=== PATIENT | female | born 1955 | race Caucasian/White ===

== ENCOUNTER → 2023-05-17 | Outpatient (CLI) | payer MEDICARE ==
[2023-05-17 14:48] LABS: African American GFR (CKD) >90 (>60 ml/min/1.73 sqM); Blood Urea Nitrogen 9 mg/dL (7-17); Non-African American GFR(CKD) >90 (>60 ml/min/1.73 sqM)
--- NOTE | 2023-05-17 16:14 | CT ---
EXAMINATION TYPE: CT angio abdomen pelvis DATE OF EXAM: 05/17/2023 COMPARISON: None HISTORY: AAA without rupture CT DLP: 453.2 mGycm Automated exposure control for dose reduction was used. Contrast: None Technique: Axial images 5 mm thick sections. Reconstructed images in the coronal plane. Three-D recon structed images performed by the technologist are reviewed on the computer. FINDINGS: CT sections were obtained through the lung bases which are clear. CT abdomen and pelvis: The aorta at the diaphragm measures 3.0 cm. Celiac axis and superior mesenteri c artery are patent. Left and right renal arteries are patent. Just below the renal artery takeoff there is a large aneurysm. Aneurysm measures 5.6 AP by 5.8 transv erse. However, the flow lumen is smaller. This extends to the bifurcation where it terminates. Distal abdominal aortic aneurysm measures 5.0 x 5.1 cm. Vascular calcifications within the iliac vessels. N o aneurysmal dilatation is evident. Internal/external iliac vessels are patent common iliac vessels a re patent. Liver and spleen appear unremarkable. Left adrenal gland is thickened measuring 1.7 cm. Right adrenal gland is normal. Kidneys appear normal without masses cyst or hydronephrosis. No renal stones are ev ident. Inferior vena cava is unremarkable. Gallbladder surgically absent. Pancreas appears normal. Lo ops of bowel without contrast. Normal within the abdomen and pelvis CT PELVIS: Uterus is unremarkable. There is a calcific mass within the left adnexa. No free fluid is within the pelvis. Urinary bladder appears normal. Osseous structures appear unremarkable without geo picious lytic or sclerotic lesions facet degenerative changes within the lumbar spine. IMPRESSION: 1. THERE IS A 5.6 X 5.8 CM ABDOMINAL AORTIC ANEURYSM EXTENDING FROM THE RENAL ARTERIES TO THE BIFURCA TION. 2. THERE IS A CALCIFIED MASS IN THE LEFT ADNEXAL REGION MEASURING 2.0 CM.
== END | disposition home or self-care (01) ==
LOC: RADCTMAIN 13:40
PROVIDERS: ATTEND Surgery
DX: I71.40 Abdominal aortic aneurysm, without rupture, unspecified (principal)
CPT/HCPCS: 82565; 84520; 36415; 74174; Q9967

== ENCOUNTER 2023-08-29 05:32 | Inpatient (IN) | payer MEDICARE ==
[2023-08-29] MEDS: IV FLUID CONTINUATION 1,000 ML IV ONE (05:49)
[2023-08-29] MEDS ORDERED: LIDOCAINE 1% (10MG/ML) FOR IV START INTRADERMA PRN (05:50)
[2023-08-29] MEDS: LACTATED RINGERS 1,000 ML IV SCH ×2 (06:19→15:07)
[2023-08-29] MEDS: ONDANSETRON 4 MG/2 ML VIAL IVP ONE (06:22)
[2023-08-29] MEDS: DEXAMETHASONE SOD PHOSPHATE 4 MG/ML 1 ML VIAL IV ONE (06:23)
[2023-08-29 06:30] LABS: Basophils # (A) 0.1 k/uL (0-0.2); Basophils % (A) 1 %; Eosinophils # (A) 0.2 k/uL (0-0.7); Eosinophils % (A) 2 %; HCT 43.9 % (34.0-46.0); HGB 14.4 gm/dL (11.4-16.0); Lymphocytes # (A) 2.8 k/uL (1.0-4.8); Lymphocytes % (A) 27 %; MCH 30.4 pg (25.0-35.0); MCHC 32.9 g/dL (31.0-37.0); MCV 92.4 fL (80.0-100.0); Mean Platelet Volume 8.5; Monocytes # (A) 0.5 k/uL (0-1.0); Monocytes % (A) 5 %; Neutrophils # (A) 6.6 k/uL (1.3-7.7); Neutrophils % (A) 65 %; Platelet Count 296 k/uL (150-450); RBC 4.75 m/uL (3.80-5.40); WBC 10.3 k/uL (3.8-10.6)
[2023-08-29 06:41] LABS: ALT 13 U/L (4-34); AST 20 U/L (14-36); African American GFR (CKD) >90 (>60 ml/min/1.73 sqM); Albumin 4.5 g/dL (3.5-5.0); Alkaline Phosphatase 97 U/L (38-126); Anion Gap 8 mmol/L; Blood Urea Nitrogen 9 mg/dL (7-17); Calcium 10.1 mg/dL (8.4-10.2); Carbon Dioxide 23 mmol/L (22-30); Chloride 108 mmol/L (98-107); Glucose 118 mg/dL (74-99); Non-African American GFR(CKD) >90 (>60 ml/min/1.73 sqM); Sodium 139 mmol/L (137-145); Total Bilirubin 0.5 mg/dL (0.2-1.3); Total Protein 7.7 g/dL (6.3-8.2)
[2023-08-29] MEDS: MIDAZOLAM 2 MG/2 ML VIAL IVP ONE (06:46)
[2023-08-29] MEDS: fentaNYL (PF) 50 MCG/ML 2 ML AMP IVP ONE (06:46)
[2023-08-29 06:59] LABS: Prothrombin Time 10.6 sec (10.0-12.5)
[2023-08-29] MEDS ORDERED: HYDROmorphone 0.5 MG/0.5 ML SYRINGE IVP PRN (07:00)
--- NOTE | 2023-08-29 07:14 | P.GSHP ---
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 She denies any abdominal, back or lower extremity pain. She denies any fevers, chills, chest pain or shortness of breath. - Review of Systems All systems: negative (what is mentioned in the PMH or HPI) Past Medical History Past Medical History: Hyperlipidemia, Hypertension, Osteoarthritis (OA) Additional Past Medical History / Comment(s): Abdominal aortic aneurysm History of Any Multi-Drug Resistant Organisms: None Reported Past Surgical History: Cholecystectomy Past Anesthesia/Blood Transfusion Reactions: No Reported Reaction Additional Past Anesthesia/Blood Transfusion Reaction / Comment(s): no hx blood transfusion Smoking Status: Current every day smoker - Past Family History Father Family Medical History: Cancer Additional Family Medical History / Comment(s): stomach CA Mother Family Medical History: Cancer Additional Family Medical History / Comment(s): lung CA Medications and Allergies Home Medications Medication Instructions Recorded Confirmed Type Atorvastatin [Lipitor] 10 mg PO DAILY 08/26/23 08/29/23 History Cholecalciferol [Vitamin D3 (25 25 mcg PO DAILY 08/26/23 08/29/23 History Mcg = 1000 Iu)] amLODIPine [Norvasc] 5 mg PO QAM 08/26/23 08/29/23 History Allergies Allergy/AdvReac Type Severity Reaction Status Date / Time No Known Allergies Allergy Verified 08/29/23 06:17 Surgical - Exam Vital Signs Temp Pulse Resp BP Pulse Ox 98 F 73 16 148/78 97 08/29/23 06:05 08/29/23 06:05 08/29/23 06:05 08/29/23 06:05 08/29/23 06:05 Patient Seen Date: 08/29/23 Patient Seen Time: 07:00 - General well developed, well nourished, no distress - Eyes PERRL, normal ocular movement - ENT normal pinna, normal nares - Neck no masses, no bruits - Respiratory normal expansion, normal respiratory effort - Cardiovascular Rhythm: regular - Abdomen Abdomen: soft, non tender - Neurologic normal coordination, normal sensation - Musculoskeletal normal gait - Psychiatric oriented to time, oriented to person, speech is normal palpable DP and PT pulses bilaterally Results - Labs 08/29/23 06:08 08/29/23 06:08 Abnormal Lab Results - Last 24 Hours (Table) 08/29/23 Range/Units 06:08 Chloride 108 H (98-107) mmol/L Glucose 118 H (74-99) mg/dL Diabetes panel 08/29/23 Range/Units 06:08 Sodium 139 (137-145) mmol/L Potassium 4.0 (3.5-5.1) mmol/L Chloride 108 H (98-107) mmol/L Carbon Dioxide 23 (22-30) mmol/L BUN 9 (7-17) mg/dL Creatinine 0.62 (0.52-1.04) mg/dL Glucose 118 H (74-99) mg/dL Calcium 10.1 (8.4-10.2) mg/dL AST 20 (14-36) U/L ALT 13 (4-34) U/L Alkaline Phosphatase 97 (38-126) U/L Total Protein 7.7 (6.3-8.2) g/dL Albumin 4.5 (3.5-5.0) g/dL Calcium panel 08/29/23 Range/Units 06:08 Calcium 10.1 (8.4-10.2) mg/dL Albumin 4.5 (3.5-5.0) g/dL Pituitary panel 08/29/23 Range/Units 06:08 Sodium 139 (137-145) mmol/L Potassium 4.0 (3.5-5.1) mmol/L Chloride 108 H (98-107) mmol/L Carbon Dioxide 23 (22-30) mmol/L BUN 9 (7-17) mg/dL Creatinine 0.62 (0.52-1.04) mg/dL Glucose 118 H (74-99) mg/dL Calcium 10.1 (8.4-10.2) mg/dL Adrenal panel 08/29/23 Range/Units 06:08 Sodium 139 (137-145) mmol/L Potassium 4.0 (3.5-5.1) mmol/L Chloride 108 H (98-107) mmol/L Carbon Dioxide 23 (22-30) mmol/L BUN 9 (7-17) mg/dL Creatinine 0.62 (0.52-1.04) mg/dL Glucose 118 H (74-99) mg/dL Calcium 10.1 (8.4-10.2) mg/dL Total Bilirubin 0.5 (0.2-1.3) mg/dL AST 20 (14-36) U/L ALT 13 (4-34) U/L Alkaline Phosphatase 97 (38-126) U/L Total Protein 7.7 (6.3-8.2) g/dL Albumin 4.5 (3.5-5.0) g/dL Assessment and Plan Assessment: Juxtarenal AAA Plan: To OR for open AAA repair.
[2023-08-29] MEDS: SODIUM CHLORIDE 0.9% 1,000 ML IV ONE ×4 (07:40→09:54)
[2023-08-29] MEDS ORDERED: CALCIUM CHLORIDE 100 MG/ML 10 ML SYRINGE ONE (07:55)
[2023-08-29] MEDS ORDERED: HEPARIN SODIUM,PORCINE 10,000 UNIT/ML 1 ML VIAL ONE (07:55)
[2023-08-29] MEDS ORDERED: NEOSTIGMINE 1 MG/ML 10 ML VIAL ONE (07:55)
[2023-08-29] MEDS ORDERED: fentaNYL (PF) 50 MCG/ML 2 ML AMP ONE (07:55)
[2023-08-29] MEDS ORDERED: ALBUMIN HUMAN 5% (25gm) 500 ML VIAL IVPB ONE (07:55)
[2023-08-29] MEDS ORDERED: PHENYLEPHRINE-0.9% NACL SYG 1,000 MCG/10 ML SYRINGE ONE (07:55)
[2023-08-29] MEDS ORDERED: MIDAZOLAM 2 MG/2 ML VIAL ONE (07:55)
[2023-08-29] MEDS ORDERED: ACETAMINOPHEN IV (For NPO) 1,000 MG/100 ML VIAL ONE (07:55)
[2023-08-29] MEDS ORDERED: PROPOFOL 10 MG/ML 20 ML VIAL IV ONE (07:55)
[2023-08-29] MEDS ORDERED: PROTAMINE SULFATE 10 MG/ML 5 ML VIAL ONE (07:55)
[2023-08-29] MEDS ORDERED: SODIUM BICARB 8.4% 50 ML SYR (1 MEQ/ML) ONE (07:55)
[2023-08-29] MEDS ORDERED: GLYCOPYRROLATE 0.2 MG/ML 2 ML VIAL ONE (07:55)
[2023-08-29] MEDS ORDERED: ROCURONIUM 10 MG/ML (5 ML VIAL) IV ONE (07:55)
[2023-08-29] MEDS: THROMBIN (BOVINE) 5,000 UNIT VIAL MISCELLANE ONE ×2 (08:10→12:03)
--- NOTE | 2023-08-29 08:13 | XR ---
EXAMINATION TYPE: XR chest 1V portable DATE OF EXAM: 08/29/2023 COMPARISON: None INDICATION: Line placement presurgical clearance TECHNIQUE: Single frontal view of the chest is obtained. FINDINGS: The heart size is normal. The pulmonary vasculature is normal. The lungs are clear. There is a right central venous catheter placement with tip in superior vena cava region. No thorax i s evident. IMPRESSION: 1. No acute pulmonary process. 2. Placement of right central venous catheter tip in the superior vena cava region. No pneumothorax.
[2023-08-29 08:20] LABS: ABG Glucose Whole Blood 110 mg/dL (75-99); ABG HCO3 24 mmol/L (21-25); ABG Ionized Calcium 4.7 mg/dL (4.5-5.3); ABG PCO2 37 mmHg (35-45); ABG PH 7.41 (7.35-7.45); ABG PO2 305 mmHg (83-108); ABG Potassium Whole Blood 3.3 mmol/L (3.4-4.5); ABG Sodium Whole Blood 141 mmol/L (135-146); Allen Test Performed? Yes
[2023-08-29 08:30] LABS: ABG TCO2 22 mmol/L (19-24)
[2023-08-29 08:31] LABS: ABG Base Excess -0.6 mmol/L; ABG Hematocrit 35 % (34.0-46.0); ABG Oxygen Saturation 99.2 % (94-97)
[2023-08-29] MEDS: HEPARIN SODIUM,PORCINE 10,000 UNIT in SODIUM CHLORIDE 0.9% 1,000 ML IRRIGATION ONE (08:42)
[2023-08-29] MEDS: ceFAZolin 4,000 MG in SODIUM CHLORIDE 0.9% 1,000 ML IRRIGATION ONE (08:43)
[2023-08-29] MEDS ORDERED: NALOXONE 0.4 MG/ML 1 ML VIAL IV PRN (09:03)
[2023-08-29] MEDS ORDERED: diphenhydrAMINE 50 MG/ML 1 ML VIAL IVP PRN (09:03)
--- NOTE | 2023-08-29 10:01 | P.ANPRN ---
Procedure Note - Anesthesia - Epidural/Spinal Epidural Continuous Time Out Performed: Yes Date of Procedure: 08/29/23 Procedure Start Time: 07:02 Procedure Stop Time: 07:10 Location of Patient: PreOp Indication: Acute Post-Operative Pain (cuppari), Requested by Surgeon Sedation Type: Sedate with meaningful contact maintained Preparation: Sterile Dressing Number of Attempts: 1 Position: Sitting Catheter Depth at Skin (cm): 10 Catheter: Indwelling Needle Guage: 18 Injectate: lido 1.5% with epi 4cc Narrative: neg test dose Blood Aspirated: No Pain Paresthesia on Injection Noted: No Events: Uneventful and Well Tolerated
--- NOTE | 2023-08-29 10:03 | P.ANPRN ---
Procedure Note - Anesthesia - Invasive Line Left Arterial Line Time Out Performed: Yes (0645) Date of Procedure: 08/29/23 Time of Procedure: 06:46 Location of Patient: PreOp Preparation: Sterile Prep, Sterile Dressing Arterial Line Location: Radial (left) Ultrasound Used: No Purpose - Visualization and Identification of Vasculature: No Needle Guage: 20g Image Stored and Saved: No Narrative: Invasive line placement per sterile protocol utilized. Lumen blood and flushed
--- NOTE | 2023-08-29 10:05 | P.ANPRN ---
Procedure Note - Anesthesia - Invasive Line Right Central Line Time Out Performed: Yes (0714) Date of Procedure: 08/29/23 Time of Procedure: 07:15 Location of Patient: PreOp Preparation: Sterile Prep, Sterile Dressing Central Line Location: Internal Jugular (right IJ MJ) Ultrasound Used: Yes Purpose - Visualization and Identification of Vasculature: Yes Needle Guage: 18g angio Image Stored and Saved: Yes Narrative: Invasive line placement per sterile protocol utilized. Anesthesia note Procedure: Right internal jugular central venous catheter insertion: Double- lumen catheter Sterile protocol followed. Right neck prepped. Ultrasound used. Lidocaine 1% used. Using ultrasound local anesthetic was instilled site over right Internal Jugular vein. Angiocath was used to gain access via ultrasound. Once free flow non-pulsatile blood flow was confirmed, 12 inch extension tubing was then placed on Angiocath. Once central venous pressure was confirmed, J-wire was then placed through Angiocath. Angiocath was then withdrawn. Local was instilled at J-wire site. Small skin justice was then made with provided sterile scalpel. Uneventful dilation. Double-lumen catheter was then inserted over the wire while maintaining control of wire at all times. Uneventful insertion. Free flow nonpulsatile blood flow through double-lumen catheter. Both lumens blood flushed and clamped. Secured with suture. Dressings applied. Drapes Removed. Attempts x1.
[2023-08-29] MEDS: LACTATED RINGERS 1,000 ML IV ONE (10:59)
[2023-08-29 12:24] LABS: ABG Glucose Whole Blood 157 mg/dL (75-99); ABG HCO3 15 mmol/L (21-25); ABG Ionized Calcium 4.2 mg/dL (4.5-5.3); ABG PCO2 37 mmHg (35-45); ABG PH 7.21 (7.35-7.45); ABG PO2 240 mmHg (83-108); ABG Potassium Whole Blood 4.1 mmol/L (3.4-4.5); ABG Sodium Whole Blood 139 mmol/L (135-146); Allen Test Performed? Yes
[2023-08-29 12:37] LABS: ABG Base Excess -1.9 mmol/L; ABG Glucose Whole Blood 155 mg/dL (75-99); ABG HCO3 23 mmol/L (21-25); ABG Hematocrit 29 % (34.0-46.0); ABG Ionized Calcium 3.8 mg/dL (4.5-5.3); ABG Oxygen Saturation 98.6 % (94-97); ABG PCO2 38 mmHg (35-45); ABG PH 7.39 (7.35-7.45); ABG PO2 226 mmHg (83-108); ABG Potassium Whole Blood 3.7 mmol/L (3.4-4.5); ABG Sodium Whole Blood 145 mmol/L (135-146); ABG TCO2 22 mmol/L (19-24); Allen Test Performed? Yes
[2023-08-29 12:41] LABS: ABG TCO2 14 mmol/L (19-24)
[2023-08-29 12:42] LABS: ABG Base Excess -12.1 mmol/L; ABG Hematocrit 31 % (34.0-46.0); ABG Lactic Acid Whole Blood 5.8 mmol/L (0.5-1.6); ABG Oxygen Saturation 98.7 % (94-97)
[2023-08-29 12:43] LABS: ABG Lactic Acid Whole Blood 5.8 mmol/L (0.5-1.6)
[2023-08-29] MEDS: ROPIVACAINE 250 MG, fentaNYL (PF) 625 MCG in SODIUM CHLORIDE 0.9% 188 ML EPIDURAL PRN (13:35)
--- NOTE | 2023-08-29 14:05 | P.OP ---
Date of Procedure: 08/29/23 Preoperative Diagnosis: Juxta-renal AAA Postoperative Diagnosis: Same Procedure(s) Performed: Open AAA repair with interposition Tube graft Anesthesia: GRANT Surgeon: Jovanni Sierra Estimated Blood Loss (ml): 700 Pathology: other (Aortic thrombus, plaque) Condition: stable Disposition: PACU Indications for Procedure: 67 year old female with history of Juxta-renal AAA presents today for open AAA secondary to poor anatomy for EVAR. Description of Procedure: Operative narrative: After written informed consent was obtained the patient all risks benefits and competitions were described the patient was brought to the operative suite and laid in a supine position. The area from the nipples to the knees were prepped and draped in usual sterile fashion after appropriate anesthetic was performed per the anesthesiologist. A timeout was performed in n ormal fashion. Antibiotics were administered prior to incision. Midline incision was then created with a 10 blade scalpel from the xiphoid to the suprapubic region and dissection was carried down with electrocautery to the fascia fascia was then incised and the abdomen was entered once the peritoneum was incised. Abdomen was then interrogated. Liver was within normal limits with some discoloration noted likely due to pressure from the aneurysm. Stomach was palpated and NG tube was in appropriate position. Small bowel was then placed in the right upper quadrant after the Omni retractor was positioned in normal fashion. The retroperitoneum was then exposed and the aorta was dissected free with electrocautery up to the renal vein. Renal vein was located and ligated in order to allow for dissection around the aorta just at the infrarenal aspect. Circumferential dissection was then carried around the aorta and a umbilical tape was placed. Continue dissection was then carried down to the bifurcation and both iliac arteries were located and dissected free and controlled with vessel loops. Patient was then administered heparin and followed with serial ACTs for appropriate heparinization. After ACT was greater than 200 the aorta was clamped at the infrarenal aspect and arteriotomy was created with 11 blade scalpel and extended with Pott Nazario scissors. The proximal and distal aspects were then T'd off in usual fashion. Lumbar vessels were then suture ligated from the inside of the sac with 2-0 Prolene suture. A large amount thrombus was encountered which was removed from the aorta. Inflow was assessed and was pulsatile after removing thrombus from the juxtarenal aspect of the aorta. The aorta was then cut to allow for end to end anastomosis. A 20mm [place] straight tube graft was chosen and the aortic aspect was spatulated and end-to-end anastomosis was created with 3-0 Prolene suture in a running fashion with pledgets. Once completed and flow was released de monstrating good pulsatile flow within the graft and no leak proximally. Attention was then placed to the distal anastomosis at the distal aorta. The graft was spatulated in usual fashion and using 3-0 Prolene suture x 2 the distal anastomosis was performed with pledgets. Final sutures were then secured after flushing of the aortic graft. Hemostasis was assured with Gelfoam and thrombin. The abdomen was copiously irrigated with antibiotic solution. The existing aneurysmal tissue was then closed with a 3-0 Vicryl suture in a running fashion. The retroperitoneum was then closed with 2-0 Vicryl suture in a running fashion. The intra-abdominal contents were once again interrogated without any evidence of injury. The fascia was then closed with 2-0 PDS suture in a running fashion 2. The skin was closed with jina. Skin was then cleansed and dressed with Prevena wound vacs. The patient tolerated the procedure well and had palpable pulse at the DP and PT bilaterally. Patient was then sent to PACU for recovery.
[2023-08-29] MEDS ORDERED: MORPHINE SULFATE 2 MG/ML SYRINGE IV PRN (14:07)
[2023-08-29] MEDS: diphenhydrAMINE 50 MG/ML 1 ML VIAL IVP STA (14:22)
[2023-08-29] MEDS: droPERidol 5 MG/2 ML VIAL IVP ONE ×2 (14:22→15:06)
[2023-08-29 14:36] LABS: Glucose,Whole Blood 256 mg/dL (70-110)
[2023-08-29 15:59] LABS: African American GFR (CKD) 73 (>60 ml/min/1.73 sqM); Anion Gap 10 mmol/L; Blood Urea Nitrogen 11 mg/dL (7-17); Calcium 9.1 mg/dL (8.4-10.2); Carbon Dioxide 20 mmol/L (22-30); Chloride 110 mmol/L (98-107); Glucose 219 mg/dL (74-99); Non-African American GFR(CKD) 63 (>60 ml/min/1.73 sqM); Sodium 140 mmol/L (137-145)
[2023-08-29 16:06] LABS: Glucose,Whole Blood 204 mg/dL (70-110)
[2023-08-29] MEDS: MORPHINE SULFATE 2 MG/ML SYRINGE IVP PRN (16:06)
[2023-08-29] MEDS: HEPARIN SODIUM,PORCINE 5,000 UNIT/ML 1 ML VIAL SQ SCH (16:07)
[2023-08-29 16:16] LABS: Basophils % (A) 0 %; Eosinophils % (A) 0 %; HCT 41.6 % (34.0-46.0); HGB 13.6 gm/dL (11.4-16.0); Lymphocytes # (A) 1.1 k/uL (1.0-4.8); Lymphocytes % (A) 5 %; MCH 30.8 pg (25.0-35.0); MCHC 32.7 g/dL (31.0-37.0); MCV 94.1 fL (80.0-100.0); Mean Platelet Volume 8.5; Monocytes # (A) 0.8 k/uL (0-1.0); Monocytes % (A) 4 %; Neutrophils # (A) 19.4 k/uL (1.3-7.7); Neutrophils % (A) 90 %; Platelet Count 241 k/uL (150-450); RBC 4.42 m/uL (3.80-5.40); WBC 21.4 k/uL (3.8-10.6)
[2023-08-29] MEDS: ATORVASTATIN 10 MG TAB PO SCH (20:13)
[2023-08-29] MEDS: amLODIPine 5 MG TAB PO SCH (20:13)
--- NOTE | 2023-08-29 21:23 | P.CONS ---
History of Present Illness - Reason for Consult Consult date: 08/29/23 Medical evaluation - Chief Complaint Medical evaluation - History of Present Illness Patient is a 67-year-old male with past medical history of hyperlipidemia, hypertension, osteoarthritis, status post open AAA repair postop day 0 is seen at the bedside for medical evaluation. Patient is in stable condition. Patient reports postsurgical left foot dull intermittent pain, 3/10, nonradiating with no alleviating or exacerbating factors. Patient stated the pain has improved from 7/10 and is feeling much better compared to how she felt 1 to 2 hours ago. Otherwise, she denies headache, dizziness, blurry vision, fever, chills, nausea, vomiting, shortness of breath, chest pain, abdominal pain, and pain anywhere else. Her urinary output at 14:59 was 675 mL via indwelling catheter. Indwelling catheter has been taken out. Patient states that she was diagnosed with AAA 3 years ago. She had been following up with Dr. Sierra and was advised by him in May 2023 for AAA repair surgery. Chest x-ray done preoperatively shows no acute pulmonary process with right central venous catheter tip in the superior vena cava region and otherwise unremarkable. Laboratory evaluation shows WBC 21.4, hemoglobin 13.6, hematocrit 41.6, platelet count 241, lactic acid 5.8 --> 3.9, sodium 140, potassium 4.0, chloride 110, bicarb 20, BUN 11, creatinine 0.95, EGFR 63, serum glucose 219. Vital sign: Tmax 97.6 F, heart rate 94, respiratory rate 15, BP 134/98, O2 saturation 97% on 2 L via nasal cannula. Review of systems: Pertinent positives and negatives as discussed in HPI, a complete review of systems was performed and all other systems are negative Social history: Tobacco: 1 pack/day x 30 years Alcohol: None Recreational drugs: Marijuana 2 times per week; last time used 2 days ago. Travel: None Occupation: Retired Family History: Noncontributory Physical examination: Vital signs reviewed General: non toxic, no distress, appears at stated age, normal weight Derm: no unusual rashes/lesions, warm Head: atraumatic, normocephalic, symmetric Eyes: EOMI, no lid lag, anicteric sclera, pupils equal round reactive to light ENT: Nose and ears atraumatic Neck: No cervical lymphadenopathy, trachea midline, supple Mouth: no lip lesion, mucus membranes moist Cardiovascular: S1S2 reg, no murmur, positive dorsalis pedis pulse bilateral, no edema Lungs: CTA bilateral, no rhonchi, no rales, no accessory muscle use Abdominal: Midline incision with no surrounding erythema and intact with wound VAC. Otherwise soft, nontender to palpation, no guarding, BS positive Ext: muscle strength 5 out of 5 in all 4 extremities grossly, no gross muscle atrophy, no contractures, heat pad wrap on both feet Neuro: CN II-XI grossly intact, no gross focal neuro deficits Psych: Alert, oriented, appropriate affect Assessment/Plan: 67-year-old female with past medical history of hyperlipidemia, hypertension, osteoarthritis, status post open AAA repair postop day 0 is seen at the bedside for medical evaluation 1. Hyperglycemia, suspected undiagnosed type 2 diabetes Ordered HbA1c Ordered sliding scale short acting insulin Continue to monitor blood glucose level 2. Status post open AAA repair Defer management including pain control to primary surgery service *Chronic conditions: Hypertension and hyperlipidemia Resume home medication tomorrow a.m.: Amlodipine 5 mg p.o. daily and Lipitor 10 mg p.o. daily DVT prophylaxis: Per surgery GI prophylaxis: Protonix 40mg IVP once daily Past Medical History Past Medical History: Hyperlipidemia, Hypertension, Osteoarthritis (OA) Additional Past Medical History / Comment(s): Abdominal aortic aneurysm History of Any Multi-Drug Resistant Organisms: None Reported Past Surgical History: Cholecystectomy Past Anesthesia/Blood Transfusion Reactions: No Reported Reaction Additional Past Anesthesia/Blood Transfusion Reaction / Comm: no hx blood transfusion Smoking Status: Current every day smoker - Past Family History Father Family Medical History: Cancer Additional Family Medical History / Comment(s): stomach CA Mother Family Medical History: Cancer Additional Family Medical History / Comment(s): lung CA Medications and Allergies Home Medications Medication Instructions Recorded Confirmed Type Atorvastatin [Lipitor] 10 mg PO DAILY 08/26/23 08/29/23 History Cholecalciferol [Vitamin D3 (25 25 mcg PO DAILY 08/26/23 08/29/23 History Mcg = 1000 Iu)] amLODIPine [Norvasc] 5 mg PO QAM 08/26/23 08/29/23 History Allergies Allergy/AdvReac Type Severity Reaction Status Date / Time No Known Allergies Allergy Verified 08/29/23 06:17 Physical Exam Vitals: Vital Signs Temp Pulse Pulse Resp BP BP BP 08/29/23 19:00 94 15 134/68 08/29/23 18:00 89 16 140/76 08/29/23 17:00 92 16 142/70 08/29/23 16:20 92 16 128/65 08/29/23 16:10 97 16 138/81 08/29/23 16:00 97.6 F 90 16 144/85 08/29/23 15:50 97 10 L 144/85 08/29/23 15:46 08/29/23 15:40 96 22 08/29/23 15:30 91 14 152/75 08/29/23 15:20 96 14 08/29/23 15:10 96 18 08/29/23 15:00 96 16 152/84 08/29/23 14:50 101 H 16 08/29/23 14:40 97.6 F 96 24 144/48 08/29/23 14:00 76 18 147/86 158/89 08/29/23 13:42 86 16 164/57 135/63 08/29/23 13:27 87 15 155/55 138/62 08/29/23 13:12 97.7 F 96 16 138/62 08/29/23 07:35 72 16 130/62 08/29/23 06:55 69 16 125/58 08/29/23 06:05 98 F 73 16 148/78 Pulse Ox FiO2 08/29/23 19:00 97 08/29/23 18:00 96 08/29/23 17:00 98 08/29/23 16:20 98 08/29/23 16:10 98 08/29/23 16:00 96 08/29/23 15:50 99 08/29/23 15:46 97 21 08/29/23 15:40 98 08/29/23 15:30 96 08/29/23 15:20 98 08/29/23 15:10 97 08/29/23 15:00 97 08/29/23 14:50 99 08/29/23 14:40 96 08/29/23 14:00 97 08/29/23 13:42 97 08/29/23 13:27 96 08/29/23 13:12 96 08/29/23 07:35 100 08/29/23 06:55 98 08/29/23 06:05 97 Intake and Output 08/29/23 08/29/23 08/29/23 06:59 14:59 22:59 Intake Total 100 4902 650 Output Total 1375 1760 Balance 100 3527 -1110 Intake: IV 100 4902 550 Invasive Line 2 20 Lactated Ringers 1,000 ml 480 @ 80 mls/hr IV .[id number] [facility] Rx#:[id number] ceFAZolin 2 gm In Sodium 50 Chloride 0.9% 50 ml @ 100 mls/hr IVPB ONCE PRN Rx# :[id number] Oral 100 Output: Gastric Drainage 100 Urine 675 1660 Estimated Blood Loss 700 Other: Voiding Method Indwelling Catheter # Bowel Movements 0 Weight 59.3 kg ABP, PAP, CO, CI - Last 8 Hours Arterial Blood Pressure 152/71 Arterial Blood Pressure 133/67 Arterial Blood Pressure 167/72 Arterial Blood Pressure 174/80 Results CBC & Chem 7: 08/29/23 15:40 08/29/23 15:40 Labs: Abnormal Lab Results - Last 24 Hours (Table) 08/29/23 08/29/23 08/29/23 Range/Units 06:08 08:23 12:27 WBC (3.8-10.6) k/uL Neutrophils # (1.3-7.7) k/uL ABG pH 7.21 L (7.35-7.45) ABG pO2 305 H 240 H (83-108) mmHg ABG HCO3 15 L (21-25) mmol/L ABG Total CO2 14 L (19-24) mmol/L ABG O2 Saturation 99.2 H 98.7 H (94-97) % ABG Hematocrit 31 L (34.0-46.0) % ABG Potassium 3.3 L (3.4-4.5) mmol/L ABG Ionized Calcium 4.2 L (4.5-5.3) mg/dL ABG Glucose 110 H 157 H (75-99) mg/dL ABG Lactic Acid 5.8 H* (0.5-1.6) mmol/L Hemoglobin 10.1 L (11.4-16.0) gm/dL Chloride 108 H (98-107) mmol/L Carbon Dioxide (22-30) mmol/L Glucose 118 H (74-99) mg/dL POC Glucose (mg/dL) (70-110) mg/dL Arterial Blood Potassium 3.3 L (3.4-4.5) mmol/L Arterial Blood Glucose 110 H 157 H (75-99) mg/dL 08/29/23 08/29/23 08/29/23 Range/Units 12:40 14:35 15:40 WBC 21.4 H (3.8-10.6) k/uL Neutrophils # 19.4 H (1.3-7.7) k/uL ABG pH (7.35-7.45) ABG pO2 226 H (83-108) mmHg ABG HCO3 (21-25) mmol/L ABG Total CO2 (19-24) mmol/L ABG O2 Saturation 98.6 H (94-97) % ABG Hematocrit 29 L (34.0-46.0) % ABG Potassium (3.4-4.5) mmol/L ABG Ionized Calcium 3.8 L (4.5-5.3) mg/dL ABG Glucose 155 H (75-99) mg/dL ABG Lactic Acid 5.8 H* (0.5-1.6) mmol/L Hemoglobin 9.4 L (11.4-16.0) gm/dL Chloride (98-107) mmol/L Carbon Dioxide (22-30) mmol/L Glucose (74-99) mg/dL POC Glucose (mg/dL) 256 H (70-110) mg/dL Arterial Blood Potassium (3.4-4.5) mmol/L Arterial Blood Glucose 155 H (75-99) mg/dL 08/29/23 08/29/23 08/29/23 Range/Units 15:40 16:00 16:05 WBC (3.8-10.6) k/uL Neutrophils # (1.3-7.7) k/uL ABG pH (7.35-7.45) ABG pO2 (83-108) mmHg ABG HCO3 (21-25) mmol/L ABG Total CO2 (19-24) mmol/L ABG O2 Saturation (94-97) % ABG Hematocrit (34.0-46.0) % ABG Potassium (3.4-4.5) mmol/L ABG Ionized Calcium (4.5-5.3) mg/dL ABG Glucose (75-99) mg/dL ABG Lactic Acid 3.9 H* (0.5-1.6) mmol/L Hemoglobin (11.4-16.0) gm/dL Chloride 110 H (98-107) mmol/L Carbon Dioxide 20 L (22-30) mmol/L Glucose 219 H (74-99) mg/dL POC Glucose (mg/dL) 204 H (70-110) mg/dL Arterial Blood Potassium (3.4-4.5) mmol/L Arterial Blood Glucose (75-99) mg/dL
[2023-08-29 22:30] LABS: Glucose,Whole Blood 135 mg/dL (70-110)
[2023-08-29] MEDS: INSULIN ASPART (NovoLOG) 100 UNIT/ML VIAL SQ SCH (22:30)
[2023-08-29] MEDS: ONDANSETRON 4 MG/2 ML VIAL IVP PRN (22:56)
[2023-08-29] MEDS: PANTOPRAZOLE 40 MG/10 ML VIAL IVP SCH (23:10)
--- NOTE | 2023-08-30 02:37 | P.CNPUL ---
History of Present Illness Consult date: 08/30/23 Requesting physician: Jovanni Sierra Reason for consult: other (ICU management) Chief complaint: Elective repair of AAA History of present illness: Patient is a 67-year-old white female with past medical history significant for hyperlipidemia, hypertension, and is a current everyday smoker. She smokes approximately 1 pack/day. Patient is also known to have an abdominal aortic aneurysm. CT angio of the abdomen and pelvis demonstrated enlargement of his aneurysm including a 5.6 x 5.8 cm abdominal aortic aneurysm extending from the renal arteries to the bifurcation. Incidentally, there is also a calcified mass in the left adnexal region measuring 2 cm. Patient is currently postoperative day #1 following an elective open AAA repair with interposition tube graft. EBL was 700 mL. No perioperative complications were reported. Patient was successfully extubated in recovery. She is currently in the intensive care unit, on 2 L/min nasal cannula, no acute distress. Blood pressure is slightly hypertensive at 131/69. Heart rhythm is normal sinus, with a rate of 90 bpm. Pain appears well-controlled with current analgesic regiment. She does have a midline abdominal incision with postoperative wound VAC in place. Incision appears approximated. No significant drainage. Abdomen is soft. CBC postoperatively includes a WBC count of 21.4, hemoglobin 13.6, hematocrit 41.6, platelets 241. Leukocytosis is likely reactive to surgery. BMP: Includes a sodium 140, potassium 4, chloride 110, serum bicarb 20, BUN 11, creatinine 0.95, glucose 219. Lactic acidemia noted and was 5.8, currently is down to 3.9. LR is infusing at 80 MLS per hour. Ropivacaine/fentanyl epidural is infusing for pain control at 6 ml/hr. Bilateral lower extremities have good strength and motor control. Bilateral feet are warm. Distal pulses are strong 2+. She does admit some left foot pain that is described as sharp, improves with dorsal/plantar flexion. Currently rated 3/10 on a 10 point numerical scale. This pain was first noted postoperatively. Patient seems to be hemodynamically stable at this time. Review of Systems REVIEW OF SYSTEMS: CONSTITUTIONAL: Denies any recent significant weight loss or weight gain. EYES: Denies change in vision. EARS, NOSE, MOUTH, THROAT: Denies headaches, denies sore throat. CARDIOVASCULAR: Denies chest pain, palpitations or syncopal episodes. RESPIRATORY: Denies shortness of breath, cough, congestion or hemoptysis. GASTROINTESTINAL: Denies change in appetite, abdominal pain, nausea and vomiting, or diarrhea GENITOURINARY: Denies hematuria, denies infections. MUSKULOSKELETAL: Denies pain, denies swelling. INTEGUMENTARY: Denies rash, denies eczema. NEUROLOGICAL: Denies recent memory loss, no recent seizure activity. PSYCHIATRIC: Denies anxiety, denies depression. HEMATOLOGIC/LYMPHATIC: Denies anemia, denies enlarged lymph node Past Medical History Past Medical History: Hyperlipidemia, Hypertension, Osteoarthritis (OA) Additional Past Medical History / Comment(s): Abdominal aortic aneurysm History of Any Multi-Drug Resistant Organisms: None Reported Past Surgical History: Cholecystectomy Past Anesthesia/Blood Transfusion Reactions: No Reported Reaction Additional Past Anesthesia/Blood Transfusion Reaction / Comment(s): no hx blood transfusion Smoking Status: Current every day smoker - Past Family History Father Family Medical History: Cancer Additional Family Medical History / Comment(s): stomach CA Mother Family Medical History: Cancer Additional Family Medical History / Comment(s): lung CA Medications and Allergies Home Medications Medication Instructions Recorded Confirmed Type Atorvastatin [Lipitor] 10 mg PO DAILY 08/26/23 08/29/23 History Cholecalciferol [Vitamin D3 (25 25 mcg PO DAILY 08/26/23 08/29/23 History Mcg = 1000 Iu)] amLODIPine [Norvasc] 5 mg PO QAM 08/26/23 08/29/23 History Allergies Allergy/AdvReac Type Severity Reaction Status Date / Time No Known Allergies Allergy Verified 08/29/23 06:17 Physical Exam Vitals: Vital Signs Temp Pulse Pulse Resp BP BP BP 08/30/23 02:00 93 18 140/91 08/30/23 01:00 90 12 131/69 08/30/23 00:00 98.2 F 92 21 137/67 08/29/23 23:04 92 16 159/77 08/29/23 23:00 99 12 142/72 08/29/23 22:00 92 18 132/62 08/29/23 21:00 94 14 133/67 08/29/23 20:00 98.4 F 91 14 140/71 08/29/23 19:00 94 15 134/68 08/29/23 18:00 89 16 140/76 08/29/23 17:00 92 16 142/70 07/15/24 16:20 92 16 128/65 08/29/23 16:10 97 16 138/81 08/29/23 16:00 97.6 F 90 16 144/85 08/29/23 15:50 97 10 L 144/85 08/29/23 15:46 08/29/23 15:40 96 22 08/29/23 15:30 91 14 152/75 08/29/23 15:20 96 14 08/29/23 15:10 96 18 08/29/23 15:00 96 16 152/84 08/29/23 14:50 101 H 16 08/29/23 14:40 97.6 F 96 24 144/48 08/29/23 14:00 76 18 147/86 158/89 08/29/23 13:42 86 16 164/57 135/63 08/29/23 13:27 87 15 155/55 138/62 08/29/23 13:12 97.7 F 96 16 138/62 08/29/23 07:35 72 16 130/62 08/29/23 06:55 69 16 125/58 08/29/23 06:05 98 F 73 16 148/78 Pulse Ox FiO2 08/30/23 02:00 96 08/30/23 01:00 96 08/30/23 00:00 96 08/29/23 23:04 96 08/29/23 23:00 94 L 08/29/23 22:00 97 08/29/23 21:00 97 08/29/23 20:00 97 08/29/23 19:00 97 08/29/23 18:00 96 08/29/23 17:00 98 08/29/23 16:20 98 08/29/23 16:10 98 08/29/23 16:00 96 08/29/23 15:50 99 08/29/23 15:46 97 21 08/29/23 15:40 98 08/29/23 15:30 96 08/29/23 15:20 98 08/29/23 15:10 97 08/29/23 15:00 97 08/29/23 14:50 99 08/29/23 14:40 96 08/29/23 14:00 97 08/29/23 13:42 97 08/29/23 13:27 96 08/29/23 13:12 96 08/29/23 07:35 100 08/29/23 06:55 98 08/29/23 06:05 97 Intake and Output 08/29/23 08/29/23 08/30/23 14:59 22:59 06:59 Intake Total 4902 898 414 Output Total 1375 2020 290 Balance 3527 -1122 124 Intake: IV 4902 748 414 0.9 pressure bag 18 24 Invasive Line 2 40 20 Lactated Ringers 1,000 ml 640 320 @ 80 mls/hr IV .[id number] [facility] Rx#:[id number] ceFAZolin 2 gm In Sodium 50 50 Chloride 0.9% 50 ml @ 100 mls/hr IVPB ONCE PRN Rx# :[id number] Oral 150 Output: Gastric Drainage 100 Urine 675 1920 290 Estimated Blood Loss 700 Other: Voiding Method Indwelling Catheter Indwelling Catheter # Bowel Movements 0 ABP, PAP, CO, CI - Last 8 Hours Arterial Blood Pressure 152/71 GENERAL EXAM: Alert, 67-year-old white female, lying supine in bed, fairly comfortable in no apparent distress. HEAD: Normocephalic and atraumatic EYES: Normal reaction of pupils, equal size. NOSE: Clear with pink turbinates. THROAT: No erythema or exudates. NECK: No masses, no JVD. Right IJ central line catheter CHEST: No chest wall deformity. LUNGS: Equal air entry with no crackles, wheeze, rhonchi or dullness. On 2 L/min nasal cannula. SpO2 96%. No conversational dyspnea or accessory muscle use.. CVS: S1 and S2 normal with no audible murmur, regular rhythm. No extra heart sounds ABDOMEN: No hepatosplenomegaly, active bowel sounds, no guarding or rigidity. SPINE: No scoliosis or deformity SKIN: No rashes CENTRAL NERVOUS SYSTEM: No focal deficits, tone is normal in all 4 extremities. EXTREMITIES: There is no peripheral edema, clubbing, or cyanosis. Peripheral pulses are intact. Results - Laboratory Findings CBC and BMP: 08/29/23 15:40 08/29/23 15:40 ABG ABG pH 7.39 (7.35-7.45) 08/29/23 12:40 ABG pCO2 38 mmHg (35-45) 08/29/23 12:40 ABG pO2 226 mmHg (83-108) H 08/29/23 12:40 ABG O2 Saturation 98.6 % (94-97) H 08/29/23 12:40 PT/INR, D-dimer PT 10.6 sec (10.0-12.5) 08/29/23 06:43 INR 1.0 (<1.2) 08/29/23 06:43 Abnormal lab findings: Abnormal Labs 08/29/23 08/29/23 08/29/23 06:08 08:23 12:27 WBC Neutrophils # ABG pH 7.21 L ABG pO2 305 H 240 H ABG HCO3 15 L ABG Total CO2 14 L ABG O2 Saturation 99.2 H 98.7 H ABG Hematocrit 31 L ABG Potassium 3.3 L ABG Ionized Calcium 4.2 L ABG Glucose 110 H 157 H ABG Lactic Acid 5.8 H* Hemoglobin 10.1 L Chloride 108 H Carbon Dioxide Glucose 118 H POC Glucose (mg/dL) Arterial Blood Potassium 3.3 L Arterial Blood Glucose 110 H 157 H 08/29/23 08/29/23 08/29/23 12:40 14:35 15:40 WBC 21.4 H Neutrophils # 19.4 H ABG pH ABG pO2 226 H ABG HCO3 ABG Total CO2 ABG O2 Saturation 98.6 H ABG Hematocrit 29 L ABG Potassium ABG Ionized Calcium 3.8 L ABG Glucose 155 H ABG Lactic Acid 5.8 H* Hemoglobin 9.4 L Chloride Carbon Dioxide Glucose POC Glucose (mg/dL) 256 H Arterial Blood Potassium Arterial Blood Glucose 155 H 08/29/23 08/29/23 08/29/23 15:40 16:00 16:05 WBC Neutrophils # ABG pH ABG pO2 ABG HCO3 ABG Total CO2 ABG O2 Saturation ABG Hematocrit ABG Potassium ABG Ionized Calcium ABG Glucose ABG Lactic Acid 3.9 H* Hemoglobin Chloride 110 H Carbon Dioxide 20 L Glucose 219 H POC Glucose (mg/dL) 204 H Arterial Blood Potassium Arterial Blood Glucose 08/29/23 22:28 WBC Neutrophils # ABG pH ABG pO2 ABG HCO3 ABG Total CO2 ABG O2 Saturation ABG Hematocrit ABG Potassium ABG Ionized Calcium ABG Glucose ABG Lactic Acid Hemoglobin Chloride Carbon Dioxide Glucose POC Glucose (mg/dL) 135 H Arterial Blood Potassium Arterial Blood Glucose - Diagnostic Findings Chest x-ray: image reviewed Assessment and Plan Assessment: Abdominal aortic aneurysm, measuring 5.6 x 5.8 cm extending from the renal artery to the bifurcation, status postoperative day #1 following an elective open repair repair with interposition tube graft. No perioperative complications reported. Patient is currently recovering in the intensive care unit. Acute leukocytosis, reactive to above Lactic acidemia, improving History of hyperlipidemia Hypertension Hyperglycemia, without known previous diagnosis of diabetes mellitus Chronic ongoing tobacco dependence, current 1 pack/day smoker and over [id number] history Plan: Patient's medications, labs, chest x-ray reviewed Currently on 2 L/min nasal cannula Encourage incentive spirometer and pulmonary toileting Blood pressure recommendations per surgery. Home dose of Norvasc has already been restarted. Assess neurovascular status of lower extremities per protocol As needed analgesics and epidural seem to be managing patient's postoperative pain well Protonix for GI prophylaxis Heparin for DVT prophylaxis Smoking cessation strongly encouraged, however, patient states that she is grieving the loss of her , who recently April, and is not ready to quit smoking at this time. We will continue to follow the patient while in the intensive care unit, patient could potentially be downgraded later today, if okayed by vascular surgery. I have personally seen and examined the patient, performed the documentation and the assessment and plan as written. Number of minutes spent on the visit:20 . Time with Patient: Greater than 30
[2023-08-30 05:02] LABS: Basophils % (A) 0 %; Eosinophils % (A) 0 %; HCT 38.4 % (34.0-46.0); HGB 12.3 gm/dL (11.4-16.0); Lymphocytes # (A) 0.9 k/uL (1.0-4.8); Lymphocytes % (A) 6 %; MCH 29.7 pg (25.0-35.0); MCV 92.9 fL (80.0-100.0); Mean Platelet Volume 10.8; Monocytes # (A) 0.7 k/uL (0-1.0); Monocytes % (A) 4 %; Neutrophils # (A) 14.3 k/uL (1.3-7.7); Neutrophils % (A) 89 %; Platelet Count 147 k/uL (150-450); RBC 4.14 m/uL (3.80-5.40); RDW 13.2 % (11.5-15.5); WBC 16.1 k/uL (3.8-10.6)
[2023-08-30 05:36] LABS: African American GFR (CKD) 37 (>60 ml/min/1.73 sqM); Anion Gap 3 mmol/L; Blood Urea Nitrogen 21 mg/dL (7-17); Calcium 8.6 mg/dL (8.4-10.2); Carbon Dioxide 27 mmol/L (22-30); Chloride 109 mmol/L (98-107); Glucose 149 mg/dL (74-99); Non-African American GFR(CKD) 32 (>60 ml/min/1.73 sqM); Potassium 3.9 mmol/L (3.5-5.1); Sodium 139 mmol/L (137-145)
[2023-08-30 06:23] LABS: Glucose,Whole Blood 150 mg/dL (70-110)
[2023-08-30] MEDS ORDERED: INSULIN ASPART (NovoLOG) 100 UNIT/ML VIAL SQ SCH (07:30)
--- NOTE | 2023-08-30 07:40 | P.PN ---
Progress Note - Text Progress Note Date: 08/30/23 Postoperative day #1 status post abdominal aortic aneurysm repair ,epidural catheter placed for postoperative analgesia, patient doing well epidural site okay, patient currently on combination of epidural infusion solution of Ropivacaine 0.0625% and fentanyl, the infusion rate at 6 ml per hour , patient had no motor deficit epidural site okay , vital signs stable ,VAS 2 /10 , Assessment and plan= post operative day #1 patient doing well ,pain well controlled , there is no anesthesia related complications
[2023-08-30] MEDS ORDERED: HYDROmorphone 0.5 MG/0.5 ML SYRINGE IVP PRN (07:55)
--- NOTE | 2023-08-30 09:49 | US ---
EXAMINATION TYPE: US kidneys/renal and bladder DATE OF EXAM: 08/30/2023 COMPARISON: NONE CLINICAL INDICATION: Female, 67 years old with history of PAMELA; EXAM MEASUREMENTS: Right Kidney: 10.5 x 4.3 x 4.9 cm Left Kidney: 10.9 x 4.9 x 4.8 cm Wagon Person notes: Exam done portable Right Kidney: No hydronephrosis or masses seen Left Kidney: No hydronephrosis or masses seen Bladder: not imaged due to bandage covering pelvic area IMPRESSION: No hydronephrosis. Unable to adequately image the bladder.
--- NOTE | 2023-08-30 11:25 | P.PN ---
Subjective Progress Note Date: 08/30/23 Principal diagnosis: Juxta-renal AAA open repair Patient is seen and examined today as a follow-up. She is in the ICU. She is postop day #1 for open abdominal aortic repair with interposition tube graft. Patient currently has epidural in place and pain is well-managed. She is able to move her lower extremities. NG tube is in place with about 250 mL output. Patient is producing good amount of urine with Nazario catheter in place. She had 1 bowel movement this morning. She denies any shortness of breath, chest pain, nausea or vomiting. Prevena wound VAC in place on abdomen. She has been afebrile. WBC 16.1 hemoglobin 12.3 platelet count 147,000 sodium 139 potassium 3.9 BUN 21 creatinine 1.65 glucose 149 Objective - Vital Signs Vital signs: Vital Signs Temp 98.1 F 08/30/23 04:00 Pulse 96 08/30/23 07:00 Resp 18 08/30/23 07:00 BP 141/70 08/30/23 07:00 Pulse Ox 95 08/30/23 07:00 FiO2 21 08/29/23 15:46 Intake & Output 08/29/23 08/30/23 08/30/23 18:59 06:59 18:59 Intake Total 5472 1292 140 Output Total 2875 1355 Balance 2597 -63 140 Weight 65.6 kg Intake: IV 5372 1142 20 0.9 pressure bag 72 Invasive Line 2 20 60 20 Lactated Ringers 1,000 ml 400 960 @ 80 mls/hr IV .[id number] [facility] Rx#:[id number] ceFAZolin 2 gm In Sodium 50 50 Chloride 0.9% 50 ml @ 100 mls/hr IVPB ONCE PRN Rx# :[id number] Oral 100 150 120 Output: Gastric Drainage 100 250 Urine 2075 1105 Estimated Blood Loss 700 Other: Voiding Method Indwelling Catheter Indwelling Catheter # Bowel Movements 0 1 ABP, PAP, CO, CI - Last Documented Arterial Blood Pressure 139/64 - Exam General appearance: The patient is alert, oriented, appears in no acute distres s. HET: Head is normocephalic and atraumatic. Pupils are equal and reactive. Neck: Supple. Heart: Regular. Lungs: Equal expansion, normal respiratory effort. Abdomen: Soft, nontender, positive bowel sounds, nondistended. Prevena wound VAC dressing in place midline abdomen. Extremities: Normal skin color and turgor. Warm to the touch. Palpable DP pulses bilaterally. Neurological: No focal deficits. Strength and sensation are grossly intact. - Labs CBC & Chem 7: 08/30/23 04:45 08/30/23 04:45 Labs: Abnormal Lab Results - Last 24 Hours (Table) 08/29/23 08/29/23 08/29/23 Range/Units 08:23 12:27 12:40 WBC (3.8-10.6) k/uL Plt Count (150-450) k/uL Neutrophils # (1.3-7.7) k/uL Lymphocytes # (1.0-4.8) k/uL ABG pH 7.21 L (7.35-7.45) ABG pO2 305 H 240 H 226 H (83-108) mmHg ABG HCO3 15 L (21-25) mmol/L ABG Total CO2 14 L (19-24) mmol/L ABG O2 Saturation 99.2 H 98.7 H 98.6 H (94-97) % ABG Hematocrit 31 L 29 L (34.0-46.0) % ABG Potassium 3.3 L (3.4-4.5) mmol/L ABG Ionized Calcium 4.2 L 3.8 L (4.5-5.3) mg/dL ABG Glucose 110 H 157 H 155 H (75-99) mg/dL ABG Lactic Acid 5.8 H* 5.8 H* (0.5-1.6) mmol/L Hemoglobin 10.1 L 9.4 L (11.4-16.0) gm/dL Chloride (98-107) mmol/L Carbon Dioxide (22-30) mmol/L BUN (7-17) mg/dL Creatinine (0.52-1.04) mg/dL Glucose (74-99) mg/dL POC Glucose (mg/dL) (70-110) mg/dL Arterial Blood Potassium 3.3 L (3.4-4.5) mmol/L Arterial Blood Glucose 110 H 157 H 155 H (75-99) mg/dL 08/29/23 08/29/23 08/29/23 Range/Units 14:35 15:40 15:40 WBC 21.4 H (3.8-10.6) k/uL Plt Count (150-450) k/uL Neutrophils # 19.4 H (1.3-7.7) k/uL Lymphocytes # (1.0-4.8) k/uL ABG pH (7.35-7.45) ABG pO2 (83-108) mmHg ABG HCO3 (21-25) mmol/L ABG Total CO2 (19-24) mmol/L ABG O2 Saturation (94-97) % ABG Hematocrit (34.0-46.0) % ABG Potassium (3.4-4.5) mmol/L ABG Ionized Calcium (4.5-5.3) mg/dL ABG Glucose (75-99) mg/dL ABG Lactic Acid (0.5-1.6) mmol/L Hemoglobin (11.4-16.0) gm/dL Chloride 110 H (98-107) mmol/L Carbon Dioxide 20 L (22-30) mmol/L BUN (7-17) mg/dL Creatinine (0.52-1.04) mg/dL Glucose 219 H (74-99) mg/dL POC Glucose (mg/dL) 256 H (70-110) mg/dL Arterial Blood Potassium (3.4-4.5) mmol/L Arterial Blood Glucose (75-99) mg/dL 08/29/23 08/29/23 08/29/23 Range/Units 16:00 16:05 22:28 WBC (3.8-10.6) k/uL Plt Count (150-450) k/uL Neutrophils # (1.3-7.7) k/uL Lymphocytes # (1.0-4.8) k/uL ABG pH (7.35-7.45) ABG pO2 (83-108) mmHg ABG HCO3 (21-25) mmol/L ABG Total CO2 (19-24) mmol/L ABG O2 Saturation (94-97) % ABG Hematocrit (34.0-46.0) % ABG Potassium (3.4-4.5) mmol/L ABG Ionized Calcium (4.5-5.3) mg/dL ABG Glucose (75-99) mg/dL ABG Lactic Acid 3.9 H* (0.5-1.6) mmol/L Hemoglobin (11.4-16.0) gm/dL Chloride (98-107) mmol/L Carbon Dioxide (22-30) mmol/L BUN (7-17) mg/dL Creatinine (0.52-1.04) mg/dL Glucose (74-99) mg/dL POC Glucose (mg/dL) 204 H 135 H (70-110) mg/dL Arterial Blood Potassium (3.4-4.5) mmol/L Arterial Blood Glucose (75-99) mg/dL 08/30/23 08/30/23 08/30/23 Range/Units 04:45 04:45 06:22 WBC 16.1 H (3.8-10.6) k/uL Plt Count 147 L (150-450) k/uL Neutrophils # 14.3 H (1.3-7.7) k/uL Lymphocytes # 0.9 L (1.0-4.8) k/uL ABG pH (7.35-7.45) ABG pO2 (83-108) mmHg ABG HCO3 (21-25) mmol/L ABG Total CO2 (19-24) mmol/L ABG O2 Saturation (94-97) % ABG Hematocrit (34.0-46.0) % ABG Potassium (3.4-4.5) mmol/L ABG Ionized Calcium (4.5-5.3) mg/dL ABG Glucose (75-99) mg/dL ABG Lactic Acid (0.5-1.6) mmol/L Hemoglobin (11.4-16.0) gm/dL Chloride 109 H (98-107) mmol/L Carbon Dioxide (22-30) mmol/L BUN 21 H (7-17) mg/dL Creatinine 1.65 H (0.52-1.04) mg/dL Glucose 149 H (74-99) mg/dL POC Glucose (mg/dL) 150 H (70-110) mg/dL Arterial Blood Potassium (3.4-4.5) mmol/L Arterial Blood Glucose (75-99) mg/dL Assessment and Plan Assessment: 1. Juxtarenal AAA status post open repair with interposition tube graft 2. History of hyperlipidemia 3. History of hypertension 4. Chronic ongoing tobacco dependence Plan: 1. Continue symptomatic and supportive care 2. Keep patient in intensive care unit 3. Continue epidural, per management from anesthesia 4. May clamp NG tube 5. Continue with n.p.o. with ice chips 6. Daily CBC, BMP 7. Continue IV fluids 8. Continue bedrest 9. Continue incentive spirometer 10. Rest of medical management per primary medical team The impression and plan of care has been dictated as directed. Patient had nausea with clamping NGT and was placed back on suction. I performed a history and examination of this patient, discussed the same with the dictator. I agree with the dictator's note ,documented as a scribe. Any additional findings or plans will be noted.
[2023-08-30 11:53] LABS: Glucose,Whole Blood 158 mg/dL (70-110)
[2023-08-30] MEDS: ONDANSETRON 4 MG/2 ML VIAL IVP PRN (14:04)
[2023-08-30] MEDS ORDERED: ACETAMINOPHEN TAB 325 MG TAB PO PRN (15:19)
[2023-08-30] MEDS ORDERED: HYDROcodone/APAP 5-325MG 1 EACH TAB PO PRN (15:20)
--- NOTE | 2023-08-30 15:25 | P.PN ---
Subjective Progress Note Date: 08/30/23 Hospital Course: 67-year-old female with history of AAA, hypertension, dyslipidemia presenting for elective AAA repair. Sound physicians consulted for medical management. Patient underwent open AAA repair with interposition tube graft. Estimated blood loss of 700 cc. Vital signs currently stable, intermittently tachycardic, not requiring any pressors. Currently being managed in medical ICU. Subjective: Patient seen and examined at bedside. No acute events overnight. Having adequate urine output. Complaining of some abdominal tenderness, having bowel movements. Nazario catheter in place Pertinent positives and negatives as discussed above, a complete review of systems was performed and all other systems are negative. Vitals Signs Reviewed. General: Nontoxic, no distress, appears at stated age Derm: Warm, dry, abdominal dressing clean, dry, intact Head: Atraumatic, normocephalic, symmetric Eyes: EOMI, no lid lag, anicteric sclera Mouth: No lip lesion, mucus membranes moist Cardiovascular: S1S2 reg, no murmur Lungs: CTA bilateral, no rhonchi, no rales, no accessory muscle use, supplemental oxygen Abdominal: Soft, nontender to palpation, no guarding, no appreciable organomegaly Ext: No gross muscle atrophy, no edema, no contractures Neuro: CN II-XI grossly intact, no focal neuro deficits Psych: Alert, oriented, appropriate affect Data Reviewed Today: Pertinent Labs: WBC 16.1, hemoglobin 12.3, sodium 139, bicarb 27, creatinine 1.65, A1c 5.9, blood sugars range between 1 35-1 58 Imaging: Renal ultrasound showed no hydronephrosis Assessment and Plan: Status post AAA open repair Leukocytosis, anticipated outcome of surgery -Pain control with epidural, managed by anesthesia, IV Dilaudid 0.5 every 2 hours as needed for severe breakthrough pain, monitor for sedation, [place] as needed for moderate pain, Tylenol as needed for mild pain -On subcu heparin for DVT prophylaxis -PT/OT ordered -Pulmonology and vascular surgery note reviewed, okay to clamp NG tube Acute kidney injury, nonoliguric Metabolic acidosis, resolved Lactic acidosis, resolved -Renal ultrasound does not show any hydronephrosis -Likely prerenal in the setting of acute blood loss -IV morphine discontinued -Continue lactated Ringer at 80 cc an hour Hypertension -Amlodipine 5 mg daily Dyslipidemia -Continue atorvastatin 10 mg daily Hyperglycemia, likely stress-induced Prediabetes, A1c 5.9 -Continue sliding scale insulin ACHS, monitor for hypoglycemia Thank you for allowing us to participate in the care of this pleasant patient. Do not hesitate to contact us with questions. Someone can be reached from the [facility] hospitalist group all hours of the day at [phone] or via perfect serve. Objective - Vital Signs Vital signs: Vital Signs Temp 97.8 F 08/30/23 12:00 Pulse 116 H 08/30/23 14:00 Resp 18 08/30/23 14:00 BP 125/73 08/30/23 14:00 Pulse Ox 93 L 08/30/23 14:00 FiO2 21 08/29/23 15:46 Intake & Output 08/29/23 08/30/23 08/30/23 18:59 06:59 18:59 Intake Total 5472 1292 1490.5 Output Total 2875 1355 790 Balance 2597 -63 700.5 Weight 65.6 kg Intake: IV 5372 1142 627 0.9 pressure bag 72 27 Invasive Line 2 20 60 40 Lactated Ringers 1,000 ml 400 960 560 @ 80 mls/hr IV .[id number] [facility] Rx#:[id number] ceFAZolin 2 gm In Sodium 50 50 Chloride 0.9% 50 ml @ 100 mls/hr IVPB ONCE PRN Rx# :[id number] Intake, IV Titration 143.5 Amount Ropivacaine 250 mg 143.5 fentaNYL (PF) 625 mcg In Sodium Chloride 0.9% 188 ml @ Per Protocol EPIDURAL .Q0M PRN Rx#: [id number] Oral 100 150 720 Output: Gastric Drainage 100 250 150 Urine 2075 1105 640 Estimated Blood Loss 700 Other: Voiding Method Indwelling Catheter Indwelling Catheter Indwelling Catheter # Bowel Movements 0 1 1 ABP, PAP, CO, CI - Last Documented Arterial Blood Pressure 146/67 - Labs CBC & Chem 7: 08/30/23 04:45 08/30/23 04:45 Labs: Abnormal Lab Results - Last 24 Hours (Table) 08/29/23 08/29/23 08/29/23 Range/Units 15:40 15:40 16:00 WBC 21.4 H (3.8-10.6) k/uL Plt Count (150-450) k/uL Neutrophils # 19.4 H (1.3-7.7) k/uL Lymphocytes # (1.0-4.8) k/uL ABG Lactic Acid 3.9 H* (0.5-1.6) mmol/L Chloride 110 H (98-107) mmol/L Carbon Dioxide 20 L (22-30) mmol/L BUN (7-17) mg/dL Creatinine (0.52-1.04) mg/dL Glucose 219 H (74-99) mg/dL POC Glucose (mg/dL) (70-110) mg/dL 08/29/23 08/29/23 08/30/23 Range/Units 16:05 22:28 04:45 WBC 16.1 H (3.8-10.6) k/uL Plt Count 147 L (150-450) k/uL Neutrophils # 14.3 H (1.3-7.7) k/uL Lymphocytes # 0.9 L (1.0-4.8) k/uL ABG Lactic Acid (0.5-1.6) mmol/L Chloride (98-107) mmol/L Carbon Dioxide (22-30) mmol/L BUN (7-17) mg/dL Creatinine (0.52-1.04) mg/dL Glucose (74-99) mg/dL POC Glucose (mg/dL) 204 H 135 H (70-110) mg/dL 08/30/23 08/30/23 08/30/23 Range/Units 04:45 06:22 11:52 WBC (3.8-10.6) k/uL Plt Count (150-450) k/uL Neutrophils # (1.3-7.7) k/uL Lymphocytes # (1.0-4.8) k/uL ABG Lactic Acid (0.5-1.6) mmol/L Chloride 109 H (98-107) mmol/L Carbon Dioxide (22-30) mmol/L BUN 21 H (7-17) mg/dL Creatinine 1.65 H (0.52-1.04) mg/dL Glucose 149 H (74-99) mg/dL POC Glucose (mg/dL) 150 H 158 H (70-110) mg/dL
[2023-08-30 17:19] LABS: Glucose,Whole Blood 128 mg/dL (70-110)
[2023-08-30] MEDS: PANTOPRAZOLE 40 MG/10 ML VIAL IVP SCH (20:38)
[2023-08-30 22:23] LABS: Glucose,Whole Blood 118 mg/dL (70-110)
[2023-08-30 23:36] LABS: Glucose,Whole Blood 122 mg/dL (70-110)
[2023-08-31 02:54] LABS: Magnesium 1.8 mg/dL (1.6-2.3); Potassium 3.6 mmol/L (3.5-5.1)
[2023-08-31 03:08] LABS: African American GFR (CKD) 36 (>60 ml/min/1.73 sqM); Anion Gap 1 mmol/L; Blood Urea Nitrogen 29 mg/dL (7-17); Calcium 8.4 mg/dL (8.4-10.2); Carbon Dioxide 27 mmol/L (22-30); Chloride 105 mmol/L (98-107); Glucose 102 mg/dL (74-99); Non-African American GFR(CKD) 31 (>60 ml/min/1.73 sqM); Potassium 3.7 mmol/L (3.5-5.1); Sodium 133 mmol/L (137-145)
[2023-08-31] MEDS ORDERED: Potassium Replacement Protocol 1 EACH MISC MISCELLANE PRN (04:26)
[2023-08-31] MEDS ORDERED: Magnesium Replacement Protocol 1 EACH MISC MISCELLANE PRN (04:28)
[2023-08-31] MEDS ORDERED: MAGNESIUM SULFATE-D5W PMX 1 GM in DEXTROSE/WATER 1 100ML.BAG IVPB ONE (05:00)
[2023-08-31] MEDS ORDERED: POTASSIUM BICARBONATE/CIT AC 20 MEQ TABLET.EFF NG-TUBE SCH (05:00)
[2023-08-31] MEDS: POTASSIUM CHLORIDE 20 MEQ in WATER FOR INJECTION 1 100ML.BAG IVPB STA (05:19)
[2023-08-31] MEDS: MAGNESIUM SULFATE-D5W PMX 1 GM in DEXTROSE/WATER 1 100ML.BAG IVPB ONE (05:20)
--- NOTE | 2023-08-31 05:52 | P.PN ---
Progress Note - Text Progress Note Date: 08/31/23 Postoperative day #2 status post abdominal aortic aneurysm repair ,epidural catheter placed for postoperative analgesia.patient currently on an epidural infusion solution of Ropivacaine 0.0625% and fentanyl, the infusion rate at 6 ml per hour , patient had no motor deficit , patient denies any pain and she feels much better than yesterday as she states.vital signs stable . Assessment and plan= post operative day #2 patient doing well ,pain well controlled , there is no anesthesia related complications
[2023-08-31 06:02] LABS: HCT 29.6 % (34.0-46.0); MCH 30.2 pg (25.0-35.0); MCHC 32.2 g/dL (31.0-37.0); MCV 93.8 fL (80.0-100.0); Mean Platelet Volume 10.4; RBC 3.15 m/uL (3.80-5.40); RDW 13.4 % (11.5-15.5)
[2023-08-31 06:37] LABS: Glucose,Whole Blood 121 mg/dL (70-110)
[2023-08-31 07:22] LABS: HGB 9.5 gm/dL (11.4-16.0)
[2023-08-31 07:56] LABS: Basophils % (A) 0 %; Eosinophils % (A) 0 %; HGB 9.7 gm/dL (11.4-16.0); Lymphocytes # (A) 1.1 k/uL (1.0-4.8); Lymphocytes % (A) 7 %; MCH 31.7 pg (25.0-35.0); MCHC 34.5 g/dL (31.0-37.0); MCV 91.7 fL (80.0-100.0); Mean Platelet Volume 11.7; Monocytes # (A) 0.7 k/uL (0-1.0); Monocytes % (A) 4 %; Neutrophils % (A) 88 %; RBC 3.06 m/uL (3.80-5.40); RDW 13.4 % (11.5-15.5); WBC 15.9 k/uL (3.8-10.6)
[2023-08-31 08:13] LABS: Platelet Count 84 k/uL (150-450)
[2023-08-31 08:14] LABS: Platelet Count 80 k/uL (150-450)
[2023-08-31 08:16] LABS: RBC Morphology Normal
[2023-08-31] MEDS: SODIUM CHLORIDE 0.9% 1,000 ML IV SCH (09:20)
[2023-08-31 10:12] LABS: ALT 57 U/L (4-34); AST 158 U/L (14-36); African American GFR (CKD) 37 (>60 ml/min/1.73 sqM); Albumin 2.5 g/dL (3.5-5.0); Alkaline Phosphatase 50 U/L (38-126); Anion Gap 1 mmol/L; Blood Urea Nitrogen 28 mg/dL (7-17); Calcium 8.4 mg/dL (8.4-10.2); Carbon Dioxide 28 mmol/L (22-30); Chloride 105 mmol/L (98-107); Glucose 96 mg/dL (74-99); Non-African American GFR(CKD) 32 (>60 ml/min/1.73 sqM); Sodium 134 mmol/L (137-145); Total Bilirubin 0.6 mg/dL (0.2-1.3); Total Protein 4.7 g/dL (6.3-8.2)
[2023-08-31 11:19] LABS: Glucose,Whole Blood 96 mg/dL (70-110)
--- NOTE | 2023-08-31 11:59 | P.PN ---
Subjective Progress Note Date: 08/31/23 Principal diagnosis: Juxta-renal AAA open repair Seen and examined today as a follow-up. She is postop day #2 for open abdominal aortic aneurysm repair. Yesterday patient attempted clear liquid diet however following had nausea and vomiting. NG tube was hooked back up to continuous suction. Patient also had couple small mucousy bowel movements through the evening with specks of blood and some rust colored. She currently has epidural in place and pain has been well manage. Blood pressures have been stable as well as heart rate, she has been afebrile. Morning labs WBC 15.9 hemoglobin 9.7 platelet count 80,000 sodium 134 potassium 4.0 BUN 28 creatinine 1.64 glucose 96 magnesium 2.2 total bilirubin 0.6 AST 158 ALT 57 alkaline phosphatase 50. Patient currently denies any shortness of breath, chest pain, abdominal pain, nausea or vomiting. She is afebrile. Objective - Vital Signs Vital signs: Vital Signs Temp 97.4 F L 08/31/23 08:00 Pulse 91 08/31/23 08:00 Resp 18 08/31/23 08:00 BP 123/63 08/31/23 08:00 Pulse Ox 94 L 08/31/23 08:00 FiO2 21 08/29/23 15:46 Intake & Output 08/30/23 08/31/23 08/31/23 18:59 06:59 18:59 Intake Total 1842.5 1489 103 Output Total 1060 1320 125 Balance 782.5 169 -22 Weight 64.8 kg Intake: IV 979 1139 103 0.9 pressure bag 39 39 3 Invasive Line 2 60 60 20 Lactated Ringers 1,000 ml 880 1040 80 @ 80 mls/hr IV .[id number] [facility], [facility]–1983 Rx#:[id number] Intake, IV Titration 143.5 200 Amount Magnesium Sulfate-D5w Pmx 100 1 gm In Dextrose/Water 1 100ml.bag @ 100 mls/hr IVPB ONCE ONE Rx#: [id number] Potassium Chloride 20 meq 100 In Water For Injection 1 100ml.bag @ 50 mls/hr IVPB ONCE STA Rx#: [id number] Ropivacaine 250 mg 143.5 fentaNYL (PF) 625 mcg In Sodium Chloride 0.9% 188 ml @ Per Protocol EPIDURAL .Q0M PRN Rx#: [id number] Oral 720 150 Output: Gastric Drainage 150 100 Urine 910 1220 125 Other: Voiding Method Indwelling Catheter Indwelling Catheter Indwelling Catheter # Bowel Movements 1 0 ABP, PAP, CO, CI - Last Documented Arterial Blood Pressure 129/55 - Exam General appearance: The patient is alert, oriented, appears in no acute distress. HET: Head is normocephalic and atraumatic. Pupils are equal and reactive. Neck: Supple. Heart: Regular. Lungs: Equal expansion, normal respiratory effort. Abdomen: Soft, nontender, positive bowel sounds, nondistended. Prevena wound VAC dressing in place midline abdomen. Extremities: Normal skin color and turgor. Warm to the touch. Palpable DP pulses bilaterally. Neurological: No focal deficits. Strength and sensation are grossly intact. - Labs CBC & Chem 7: 08/31/23 07:35 08/31/23 09:32 Labs: Abnormal Lab Results - Last 24 Hours (Table) 08/30/23 08/30/23 08/30/23 Range/Units 11:52 17:17 22:21 WBC (3.8-10.6) k/uL RBC (3.80-5.40) m/uL Hgb (11.4-16.0) gm/dL Hct (34.0-46.0) % Plt Count (150-450) k/uL Neutrophils # (1.3-7.7) k/uL Sodium (137-145) mmol/L BUN (7-17) mg/dL Creatinine (0.52-1.04) mg/dL Glucose (74-99) mg/dL POC Glucose (mg/dL) 158 H 128 H 118 H (70-110) mg/dL 08/30/23 08/31/23 08/31/23 Range/Units 23:35 02:03 05:30 WBC 16.0 H (3.8-10.6) k/uL RBC 3.15 L (3.80-5.40) m/uL Hgb 9.5 L D (11.4-16.0) gm/dL Hct 29.6 L (34.0-46.0) % Plt Count 84 L (150-450) k/uL Neutrophils # (1.3-7.7) k/uL Sodium 133 L (137-145) mmol/L BUN 29 H (7-17) mg/dL Creatinine 1.71 H (0.52-1.04) mg/dL Glucose 102 H (74-99) mg/dL POC Glucose (mg/dL) 122 H (70-110) mg/dL 08/31/23 08/31/23 Range/Units 06:36 07:35 WBC 15.9 H (3.8-10.6) k/uL RBC 3.06 L (3.80-5.40) m/uL Hgb 9.7 L (11.4-16.0) gm/dL Hct 28.0 L (34.0-46.0) % Plt Count 80 L (150-450) k/uL Neutrophils # 14.0 H (1.3-7.7) k/uL Sodium (137-145) mmol/L BUN (7-17) mg/dL Creatinine (0.52-1.04) mg/dL Glucose (74-99) mg/dL POC Glucose (mg/dL) 121 H (70-110) mg/dL Assessment and Plan Assessment: 1. Juxtarenal AAA status post open repair with interposition tube graft 2. Acute kidney injury likely prerenal in setting of acute blood loss 3. Anemia likely secondary to acute blood loss secondary to surgery, expected 4. History of hyperlipidemia 5. History of hypertension 6. Chronic ongoing tobacco dependence Plan: 1. Continue symptomatic and supportive care 2. Keep patient in intensive care unit 3. Recommend discontinuing epidural per anesthesia 4. Continue NG tube 5. Continue with n.p.o. with ice chips 6. Daily CBC, BMP 7. Continue IV fluids, increased to 125 an hour with normal saline 8. Increase activity once epidural is removed 9. Continue incentive spirometer 10. Smoking cessation discussed with patient. Nicotine patch offered to patient and ordered. 11. Continue Prevena wound VAC dressing to abdomen for 7 days postop 12. Rest of medical management per primary medical team The impression and plan of care has been dictated as directed. Dr. Sierra I performed a history and examination of this patient, discussed the same with the dictator. I agree with the dictator's note ,documented as a scribe. Any additional findings or plans will be noted.
[2023-08-31] MEDS: NICOTINE 14MG/24HR PATCH TRANSDERM SCH (12:20)
--- NOTE | 2023-08-31 13:23 | P.PN ---
Subjective Progress Note Date: 08/31/23 Principal diagnosis: Aneurysm repair. Patient is a 67-year-old white female with past medical history significant for hyperlipidemia, hypertension, and is a current everyday smoker. She smokes approximately 1 pack/day. Patient is also known to have an abdominal aortic aneurysm. CT angio of the abdomen and pelvis demonstrated enlargement of his aneurysm including a 5.6 x 5.8 cm abdominal aortic aneurysm extending from the renal arteries to the bifurcation. Incidentally, there is also a calcified mass in the left adnexal region measuring 2 cm. Patient is currently postoperative day #1 following an elective open AAA repair with interposition tube graft. EBL was 700 mL. No perioperative complications were reported. Patient was successfully extubated in recovery. She is currently in the intensive care unit, on 2 L/min nasal cannula, no acute distress. Blood pressure is slightly hypertensive at 131/69. Heart rhythm is normal sinus, with a rate of 90 bpm. Pain appears well-controlled with current analgesic regiment. She does have a midline abdominal incision with postoperative wound VAC in place. Incision appears approximated. No significant drainage. Abdomen is soft. CBC postoperatively includes a WBC count of 21.4, hemoglobin 13.6, hematocrit 41.6, platelets 241. Leukocytosis is likely reactive to surgery. BMP: Includes a sodium 140, potassium 4, chloride 110, serum bicarb 20, BUN 11, creatinine 0.95, glucose 219. Lactic acidemia noted and was 5.8, currently is down to 3.9. LR is infusing at 80 MLS per hour. Ropivacaine/fentanyl epidural is infusing for pain control at 6 ml/hr. Bilateral lower extremities have good strength and motor c ontrol. Bilateral feet are warm. Distal pulses are strong 2+. She does admit some left foot pain that is described as sharp, improves with dorsal/plantar flexion. Currently rated 3/10 on a 10 point numerical scale. This pain was first noted postoperatively. Patient seems to be hemodynamically stable at this time. Progress note dated August 31, 2023. 67-year-old white female postoperative day #2, status post abdominal aortic aneurysm repair. Currently, the patient is on 2 L of nasal oxygen, has an NG tube in place, and getting saline at 125 cc/h. The patient has no specific complaints. Clinically she is doing well. She denies any significant pain or any shortness of breath. Current labs include a white count 15.9, hemoglobin 9.7, hematocrit 28, and a platelet count of 80,000. Sodium 134, potassium 4, chlorides 105, CO2 28, BUN 28, creatinine 1.64. Glucose is 96. AST 158 ALT 57 and albumin is 2.5. No chest x-ray today. Objective - Vital Signs Vital signs: Vital Signs Temp 97.6 F 08/31/23 12:00 Pulse 85 08/31/23 12:00 Resp 14 08/31/23 12:00 BP 125/60 08/31/23 12:00 Pulse Ox 96 08/31/23 12:00 FiO2 21 08/29/23 15:46 Intake & Output 08/30/23 08/31/23 08/31/23 18:59 06:59 18:59 Intake Total 1842.5 1489 887.2 Output Total 1060 1320 760 Balance 782.5 169 127.2 Weight 64.8 kg Intake: IV 979 1139 635 0.9 pressure bag 39 39 15 Invasive Line 2 60 60 40 Lactated Ringers 1,000 ml 880 1040 80 @ 100 mls/hr IV .Q10H [facility] Rx#:[id number] Sodium Chloride 0.9% 1, 500 000 ml @ 125 mls/hr IV . Q8H [facility] Rx#:[id number] Intake, IV Titration 143.5 200 132.2 Amount Magnesium Sulfate-D5w Pmx 100 1 gm In Dextrose/Water 1 100ml.bag @ 100 mls/hr IVPB ONCE ONE Rx#: [id number] Potassium Chloride 20 meq 100 In Water For Injection 1 100ml.bag @ 50 mls/hr IVPB ONCE STA Rx#: [id number] Ropivacaine 250 mg 143.5 132.2 fentaNYL (PF) 625 mcg In Sodium Chloride 0.9% 188 ml @ Per Protocol EPIDURAL .Q0M PRN Rx#: [id number] Oral 720 150 120 Output: Gastric Drainage 150 100 150 Urine 910 1220 610 Other: Voiding Method Indwelling Catheter Indwelling Catheter Indwelling Catheter # Bowel Movements 1 0 ABP, PAP, CO, CI - Last Documented Arterial Blood Pressure 129/55 - Exam No acute distress, oriented 3. No respiratory distress. Currently on 2 L nasal cannula. NG tube in place. HEENT examination is grossly unremarkable. Mucous membranes are moist. No oral lesions. Neck supple. Full range of motion. No adenopathy thyromegaly or neck vein distention. Cardiovascular examination reveals regular rhythm rate. S1-S2 normal. No S3 or S4. No discernible murmur noted. Heart sounds are distant. Heart rate 85 bpm. Lungs reveal clear breath sounds. Her sounds are equal bilaterally. No adventitious lung sounds including wheezes rhonchi or crackles. 2 L saturation is 96%. Abdomen soft bowel sounds are heard. No masses or tenderness. Extremities are intact. No cyanosis clubbing or edema. Skin is without rash or lesion. Neurologic examination is brief but nonfocal. - Labs CBC & Chem 7: 08/31/23 07:35 08/31/23 09:32 Labs: Abnormal Lab Results - Last 24 Hours (Table) 08/30/23 08/30/23 08/30/23 Range/Units 17:17 22:21 23:35 WBC (3.8-10.6) k/uL RBC (3.80-5.40) m/uL Hgb (11.4-16.0) gm/dL Hct (34.0-46.0) % Plt Count (150-450) k/uL Neutrophils # (1.3-7.7) k/uL Sodium (137-145) mmol/L BUN (7-17) mg/dL Creatinine (0.52-1.04) mg/dL Glucose (74-99) mg/dL POC Glucose (mg/dL) 128 H 118 H 122 H (70-110) mg/dL AST (14-36) U/L ALT (4-34) U/L Total Protein (6.3-8.2) g/dL Albumin (3.5-5.0) g/dL 08/31/23 08/31/23 08/31/23 Range/Units 02:03 05:30 06:36 WBC 16.0 H (3.8-10.6) k/uL RBC 3.15 L (3.80-5.40) m/uL Hgb 9.5 L D (11.4-16.0) gm/dL Hct 29.6 L (34.0-46.0) % Plt Count 84 L (150-450) k/uL Neutrophils # (1.3-7.7) k/uL Sodium 133 L (137-145) mmol/L BUN 29 H (7-17) mg/dL Creatinine 1.71 H (0.52-1.04) mg/dL Glucose 102 H (74-99) mg/dL POC Glucose (mg/dL) 121 H (70-110) mg/dL AST (14-36) U/L ALT (4-34) U/L Total Protein (6.3-8.2) g/dL Albumin (3.5-5.0) g/dL 08/31/23 08/31/23 Range/Units 07:35 09:32 WBC 15.9 H (3.8-10.6) k/uL RBC 3.06 L (3.80-5.40) m/uL Hgb 9.7 L (11.4-16.0) gm/dL Hct 28.0 L (34.0-46.0) % Plt Count 80 L (150-450) k/uL Neutrophils # 14.0 H (1.3-7.7) k/uL Sodium 134 L (137-145) mmol/L BUN 28 H (7-17) mg/dL Creatinine 1.64 H (0.52-1.04) mg/dL Glucose (74-99) mg/dL POC Glucose (mg/dL) (70-110) mg/dL AST 158 H (14-36) U/L ALT 57 H (4-34) U/L Total Protein 4.7 L (6.3-8.2) g/dL Albumin 2.5 L (3.5-5.0) g/dL Assessment and Plan Assessment: Abdominal aortic aneurysm, measuring 5.6 x 5.8 cm extending from the renal arter y to the bifurcation, status postoperative day #2 following an elective open repair repair with interposition tube graft. Acute leukocytosis, reactive to above. Lactic acidemia, improving. History of hyperlipidemia. Hypertension. Hyperglycemia, without known previous diagnosis of diabetes mellitus. Chronic ongoing tobacco dependence, current 1 pack/day smoker and over 58-[id number] history. Plan: Plan dated August 31, 2023. The patient is seen in the intensive care unit. She remains in the intensive care unit, for further monitoring and management. The patient has an NG tube in place. She is postoperative day #2. She is on 2 L of nasal cannula. She is getting saline at 125 cc an hour. Was a slight worsening of the patient's kidney function. In addition, the patient's sodium was a bit lower. We will continue to follow the patient, make recommendations along the way. Prognosis is guarded. No additional recommendations at this time. Time with Patient: Greater than 30
--- NOTE | 2023-08-31 13:29 | P.PN ---
Progress Note - Text Progress Note Date: 08/31/23 Epidural catheter discontinue , catheter removed tip intact.
--- NOTE | 2023-08-31 14:48 | P.PN ---
Subjective Progress Note Date: 08/31/23 Hospital Course: 67-year-old female with history of AAA, hypertension, dyslipidemia presenting for elective AAA repair. Sound physicians consulted for medical management. Patient underwent open AAA repair with interposition tube graft. Estimated blood loss of 700 cc. Vital signs currently stable, intermittently tachycardic, not requiring any pressors. Currently being managed in medical ICU. Subjective: Patient seen and examined at bedside. No acute events overnight. Having adequate urine output. No further bloody bowel movements. Nazario catheter in place Pertinent positives and negatives as discussed above, a complete review of systems was performed and all other systems are negative. Vitals Signs Reviewed. General: Nontoxic, no distress, appears at stated age Derm: Warm, dry, abdominal dressing clean, dry, intact Head: Atraumatic, normocephalic, symmetric Eyes: EOMI, no lid lag, anicteric sclera Mouth: No lip lesion, mucus membranes moist Cardiovascular: S1S2 reg, no murmur Lungs: CTA bilateral, no rhonchi, no rales, no accessory muscle use, supplemental oxygen Abdominal: Soft, nontender to palpation, no guarding, no appreciable organomegaly Ext: No gross muscle atrophy, no edema, no contractures Neuro: CN II-XI grossly intact, no focal neuro deficits Psych: Alert, oriented, appropriate affect Data Reviewed Today: Pertinent Labs: WBC 15.9, hemoglobin 9.7, platelet 80, creatinine 1.64 magnesium 2.2, blood sugars range ranging 96-1 21 Imaging: No new imaging Assessment and Plan: Status post AAA open repair Leukocytosis, anticipated outcome of surgery Acute blood loss anemia, anticipated outcome of surgery Possible GI bleed? -Pain control with epidural, managed by anesthesia, IV Dilaudid 0.5 every 2 hours as needed for severe breakthrough pain, monitor for sedation, [place] as needed for moderate pain, Tylenol as needed for mild pain -On subcu heparin for DVT prophylaxis -PT/OT -Discussed management with vascular surgery, continue n.p.o. with ice chips, likely remove epidural -On Protonix 40 IV twice daily, continue to monitor hemoglobin, if further drop in hemoglobin, can consider GI consult -Pulmonology note reviewed, continue to monitor Acute kidney injury, nonoliguric, slightly worsened Metabolic acidosis, resolved Lactic acidosis, resolved -Still having good urine output -Likely prerenal in the setting of acute blood loss -On normal saline 125 cc an hour, continue Hypertension -Amlodipine 5 mg daily Dyslipidemia -Continue atorvastatin 10 mg daily Hyperglycemia, likely stress-induced Prediabetes, A1c 5.9 -Continue sliding scale insulin ACHS, monitor for hypoglycemia Thank you for allowing us to participate in the care of this pleasant patient. Do not hesitate to contact us with questions. Someone can be reached from the [facility] hospitalist group all hours of the day at [phone] or via [employer]. Objective - Vital Signs Vital signs: Vital Signs Temp 97.6 F 08/31/23 12:00 Pulse 85 08/31/23 12:00 Resp 14 08/31/23 12:00 BP 125/60 08/31/23 12:00 Pulse Ox 96 08/31/23 12:00 FiO2 21 08/29/23 15:46 Intake & Output 08/30/23 08/31/23 08/31/23 18:59 06:59 18:59 Intake Total 1842.5 1489 887.2 Output Total 1060 1320 760 Balance 782.5 169 127.2 Weight 64.8 kg Intake: IV 979 1139 635 0.9 pressure bag 39 39 15 Invasive Line 2 60 60 40 Lactated Ringers 1,000 ml 880 1040 80 @ 100 mls/hr IV .Q10H [facility] Rx#:[id number] Sodium Chloride 0.9% 1, 500 000 ml @ 125 mls/hr IV . Q8H [facility] Rx#:[id number] Intake, IV Titration 143.5 200 132.2 Amount Magnesium Sulfate-D5w Pmx 100 1 gm In Dextrose/Water 1 100ml.bag @ 100 mls/hr IVPB ONCE ONE Rx#: [id number] Potassium Chloride 20 meq 100 In Water For Injection 1 100ml.bag @ 50 mls/hr IVPB ONCE STA Rx#: [id number] Ropivacaine 250 mg 143.5 132.2 fentaNYL (PF) 625 mcg In Sodium Chloride 0.9% 188 ml @ Per Protocol EPIDURAL .Q0M PRN Rx#: [id number] Oral 720 150 120 Output: Gastric Drainage 150 100 150 Urine 910 1220 610 Other: Voiding Method Indwelling Catheter Indwelling Catheter Indwelling Catheter # Bowel Movements 1 0 ABP, PAP, CO, CI - Last Documented Arterial Blood Pressure 129/55 - Labs CBC & Chem 7: 08/31/23 07:35 08/31/23 09:32 Labs: Abnormal Lab Results - Last 24 Hours (Table) 08/30/23 08/30/23 08/30/23 Range/Units 17:17 22:21 23:35 WBC (3.8-10.6) k/uL RBC (3.80-5.40) m/uL Hgb (11.4-16.0) gm/dL Hct (34.0-46.0) % Plt Count (150-450) k/uL Neutrophils # (1.3-7.7) k/uL Sodium (137-145) mmol/L BUN (7-17) mg/dL Creatinine (0.52-1.04) mg/dL Glucose (74-99) mg/dL POC Glucose (mg/dL) 128 H 118 H 122 H (70-110) mg/dL AST (14-36) U/L ALT (4-34) U/L Total Protein (6.3-8.2) g/dL Albumin (3.5-5.0) g/dL 08/31/23 08/31/23 08/31/23 Range/Units 02:03 05:30 06:36 WBC 16.0 H (3.8-10.6) k/uL RBC 3.15 L (3.80-5.40) m/uL Hgb 9.5 L D (11.4-16.0) gm/dL Hct 29.6 L (34.0-46.0) % Plt Count 84 L (150-450) k/uL Neutrophils # (1.3-7.7) k/uL Sodium 133 L (137-145) mmol/L BUN 29 H (7-17) mg/dL Creatinine 1.71 H (0.52-1.04) mg/dL Glucose 102 H (74-99) mg/dL POC Glucose (mg/dL) 121 H (70-110) mg/dL AST (14-36) U/L ALT (4-34) U/L Total Protein (6.3-8.2) g/dL Albumin (3.5-5.0) g/dL 08/31/23 08/31/23 Range/Units 07:35 09:32 WBC 15.9 H (3.8-10.6) k/uL RBC 3.06 L (3.80-5.40) m/uL Hgb 9.7 L (11.4-16.0) gm/dL Hct 28.0 L (34.0-46.0) % Plt Count 80 L (150-450) k/uL Neutrophils # 14.0 H (1.3-7.7) k/uL Sodium 134 L (137-145) mmol/L BUN 28 H (7-17) mg/dL Creatinine 1.64 H (0.52-1.04) mg/dL Glucose (74-99) mg/dL POC Glucose (mg/dL) (70-110) mg/dL AST 158 H (14-36) U/L ALT 57 H (4-34) U/L Total Protein 4.7 L (6.3-8.2) g/dL Albumin 2.5 L (3.5-5.0) g/dL
[2023-08-31 16:40] LABS: Glucose,Whole Blood 88 mg/dL (70-110)
[2023-08-31 20:21] LABS: Glucose,Whole Blood 87 mg/dL (70-110)
[2023-09-01 03:37] LABS: HGB 8.5 gm/dL (11.4-16.0); MCH 30.3 pg (25.0-35.0); MCHC 32.8 g/dL (31.0-37.0); MCV 92.4 fL (80.0-100.0); Mean Platelet Volume 12.1; RBC 2.82 m/uL (3.80-5.40); RDW 13.6 % (11.5-15.5)
[2023-09-01 03:38] LABS: Platelet Count 69 k/uL (150-450)
[2023-09-01 04:07] LABS: African American GFR (CKD) 45 (>60 ml/min/1.73 sqM); Anion Gap 6 mmol/L; Blood Urea Nitrogen 28 mg/dL (7-17); Carbon Dioxide 21 mmol/L (22-30); Chloride 108 mmol/L (98-107); Glucose 73 mg/dL (74-99); Magnesium 2.3 mg/dL (1.6-2.3); Non-African American GFR(CKD) 39 (>60 ml/min/1.73 sqM); Potassium 3.5 mmol/L (3.5-5.1); Sodium 135 mmol/L (137-145)
[2023-09-01] MEDS: POTASSIUM CHLORIDE 20 MEQ in WATER FOR INJECTION 1 100ML.BAG IVPB SCH (04:55)
[2023-09-01] MEDS ORDERED: POTASSIUM CHLORIDE 10 MEQ in WATER FOR INJECTION 1 100ML.BAG IVPB SCH (05:00)
[2023-09-01 06:52] LABS: Glucose,Whole Blood 75 mg/dL (70-110)
[2023-09-01 09:02] LABS: Reticulocyte % 1.8 % (0.5-2.0)
[2023-09-01 10:52] LABS: Haptoglobin 99.9 mg/dL (31.2-198.0)
--- NOTE | 2023-09-01 11:06 | P.PN ---
Subjective Progress Note Date: 09/01/23 Principal diagnosis: Aneurysm repair. Patient is a 67-year-old white female with past medical history significant for hyperlipidemia, hypertension, and is a current everyday smoker. She smokes approximately 1 pack/day. Patient is also known to have an abdominal aortic aneurysm. CT angio of the abdomen and pelvis demonstrated enlargement of his aneurysm including a 5.6 x 5.8 cm abdominal aortic aneurysm extending from the renal arteries to the bifurcation. Incidentally, there is also a calcified mass in the left adnexal region measuring 2 cm. Patient is currently postoperative day #1 following an elective open AAA repair with interposition tube graft. EBL was 700 mL. No perioperative complications were reported. Patient was successfully extubated in recovery. She is currently in the intensive care unit, on 2 L/min nasal cannula, no acute distress. Blood pressure is slightly hypertensive at 131/69. Heart rhythm is normal sinus, with a rate of 90 bpm. Pain appears well-controlled with current analgesic regiment. She does have a midline abdominal incision with postoperative wound VAC in place. Incision appears approximated. No significant drainage. Abdomen is soft. CBC postoperatively includes a WBC count of 21.4, hemoglobin 13.6, hematocrit 41.6, platelets 241. Leukocytosis is likely reactive to surgery. BMP: Includes a sodium 140, potassium 4, chloride 110, serum bicarb 20, BUN 11, creatinine 0.95, glucose 219. Lactic acidemia noted and was 5.8, currently is down to 3.9. LR is infusing at 80 MLS per hour. Ropivacaine/fentanyl epidural is infusing for pain control at 6 ml/hr. Bilateral lower extremities have good strength and motor c ontrol. Bilateral feet are warm. Distal pulses are strong 2+. She does admit some left foot pain that is described as sharp, improves with dorsal/plantar flexion. Currently rated 3/10 on a 10 point numerical scale. This pain was first noted postoperatively. Patient seems to be hemodynamically stable at this time. Progress note dated August 31, 2023. 67-year-old white female postoperative day #2, status post abdominal aortic aneurysm repair. Currently, the patient is on 2 L of nasal oxygen, has an NG tube in place, and getting saline at 125 cc/h. The patient has no specific complaints. Clinically she is doing well. She denies any significant pain or any shortness of breath. Current labs include a white count 15.9, hemoglobin 9.7, hematocrit 28, and a platelet count of 80,000. Sodium 134, potassium 4, chlorides 105, CO2 28, BUN 28, creatinine 1.64. Glucose is 96. AST 158 ALT 57 and albumin is 2.5. No chest x-ray today. Progress note dated September 01, 2023. 67-year-old white female postop day #3, status post abdominal aortic aneurysm repair. The patient is seen today in room 261. NG tube has been removed. She is currently on room air. She is getting saline at 125 cc an hour. The patient is doing well, and can be transferred out of the intensive care unit. Labs tod ay include a white count of 13, hemoglobin 8.5, hematocrit 26, and a platelet count of 69,000. The patient's sodium was 135, potassium 3.5, chlorides 108, CO2 21, anion gap 6, BUN 28, creatinine 1.42. Objective - Vital Signs Vital signs: Vital Signs Temp 97.8 F 09/01/23 04:00 Pulse 97 09/01/23 07:00 Resp 8 L 09/01/23 07:00 BP 145/68 09/01/23 07:00 Pulse Ox 93 L 09/01/23 07:00 FiO2 21 08/29/23 15:46 Intake & Output 08/31/23 09/01/23 09/01/23 18:59 06:59 18:59 Intake Total 1789.2 1560 125 Output Total 1980 1240 525 Balance -190.8 320 -400 Weight 65 kg Intake: IV 1417 1560 125 0.9 pressure bag 27 Invasive Line 2 60 60 Lactated Ringers 1,000 ml 80 @ 100 mls/hr IV .Q10H [facility] Rx#:[id number] Sodium Chloride 0.9% 1, 1250 1500 125 000 ml @ 125 mls/hr IV . Q8H [facility] Rx#:[id number] Intake, IV Titration 132.2 Amount Ropivacaine 250 mg 132.2 fentaNYL (PF) 625 mcg In Sodium Chloride 0.9% 188 ml @ Per Protocol EPIDURAL .Q0M PRN Rx#: [id number] Oral 240 Output: Gastric Drainage 700 450 Urine 1280 1240 75 Other: Voiding Method Indwelling Catheter Indwelling Catheter # Bowel Movements 0 ABP, PAP, CO, CI - Last Documented Arterial Blood Pressure 143/63 - Exam No acute distress, oriented 3. No respiratory distress. Currently on room air. HEENT examination is grossly unremarkable. Mucous membranes are moist. No oral lesions. NG tube has been removed. Neck supple. Full range of motion. No adenopathy thyromegaly or neck vein distention. Cardiovascular examination reveals regular rhythm rate. S1-S2 normal. No S3 or S4. No discernible murmur noted. Heart sounds are distant. Heart rate 92 bpm. Lungs reveal clear breath sounds. Her sounds are equal bilaterally. No adventitious lung sounds including wheezes rhonchi or crackles. Room air saturation 93%. Abdomen soft bowel sounds are heard. No masses or tenderness. Extremities are intact. No cyanosis clubbing or edema. Skin is without rash or lesion. Neurologic examination is brief but nonfocal. - Labs CBC & Chem 7: 09/01/23 03:10 09/01/23 03:10 Labs: Abnormal Lab Results - Last 24 Hours (Table) 09/01/23 09/01/23 09/01/23 Range/Units 03:10 03:10 08:13 WBC 13.0 H (3.8-10.6) k/uL RBC 2.82 L (3.80-5.40) m/uL Hgb 8.5 L (11.4-16.0) gm/dL Hct 26.0 L (34.0-46.0) % Plt Count 69 L (150-450) k/uL Fibrinogen (200-500) mg/dL D-Dimer (<0.60) mg/L FEU Sodium 135 L (137-145) mmol/L Chloride 108 H (98-107) mmol/L Carbon Dioxide 21 L (22-30) mmol/L BUN 28 H (7-17) mg/dL Creatinine 1.42 H (0.52-1.04) mg/dL Glucose 73 L (74-99) mg/dL Calcium 8.0 L (8.4-10.2) mg/dL Transferrin (204.0-354.0) mg/dL Lactate Dehydrogenase 1973 H (120-246) U/L 09/01/23 09/01/23 Range/Units 08:13 08:13 WBC (3.8-10.6) k/uL RBC (3.80-5.40) m/uL Hgb (11.4-16.0) gm/dL Hct (34.0-46.0) % Plt Count (150-450) k/uL Fibrinogen 935 H (200-500) mg/dL D-Dimer 7.22 H (<0.60) mg/L FEU Sodium (137-145) mmol/L Chloride (98-107) mmol/L Carbon Dioxide (22-30) mmol/L BUN (7-17) mg/dL Creatinine (0.52-1.04) mg/dL Glucose (74-99) mg/dL Calcium (8.4-10.2) mg/dL Transferrin 141.0 L (204.0-354.0) mg/dL Lactate Dehydrogenase (120-246) U/L Assessment and Plan Assessment: Abdominal aortic aneurysm, measuring 5.6 x 5.8 cm extending from the renal artery to the bifurcation, status postoperative day #3 following an elective open repair repair with interposition tube graft. Acute leukocytosis, reactive to above. Lactic acidemia, improving. History of hyperlipidemia. Hypertension. Hyperglycemia, without known previous diagnosis of diabetes mellitus. Chronic ongoing tobacco dependence, current 1 pack/day smoker and over [id number] history. Plan: Plan dated August 31, 2023. The patient is seen in the intensive care unit. She remains in the intensive care unit, for further monitoring and management. The patient has an NG tube in place. She is postoperative day #2. She is on 2 L of nasal cannula. She is getting saline at 125 cc an hour. Was a slight worsening of the patient's kidney function. In addition, the patient's sodium was a bit lower. We will continue to follow the patient, make recommendations along the way. Prognosis is guarded. No additional recommendations at this time. Plan dated September 01, 2023. The patient is seen in room 261. She is on room air. NG tube has been removed. She continues on saline at 125 cc an hour. Labs, x-rays, medications are reviewed. The patient has been downgraded, and can be moved out of the intensive care unit. We will continue to follow the patient, make recommendations along the way. The patient's overall prognosis remains guarded. No additional recommendations are made at this time. Time with Patient: Less than 30
--- NOTE | 2023-09-01 11:09 | P.PN ---
Subjective Progress Note Date: 09/01/23 Principal diagnosis: Juxta-renal AAA open repair Patient seen and examined today as a follow-up. She is postop day #3. NG tube came out on its own this morning. She denies any nausea or vomiting. Had small amount of mucus from the rectum that was pink-tinged through the night. States abdominal pain has been well-managed Prevena dressing intact. Epidural catheter was removed by anesthesia yesterday. Good urine output. Initial morning labs WBC 13 hemoglobin 8.5 hematocrit 26 platelet count 69,000 sodium 135 potassium 3.5 BUN 28 creatinine 1.42 magnesium 2.3. Medical team following ordered further workup. Objective - Vital Signs Vital signs: Vital Signs Temp 97.8 F 09/01/23 04:00 Pulse 97 09/01/23 07:00 Resp 8 L 09/01/23 07:00 BP 145/68 09/01/23 07:00 Pulse Ox 93 L 09/01/23 07:00 FiO2 21 08/29/23 15:46 Intake & Output 08/31/23 09/01/23 09/01/23 18:59 06:59 18:59 Intake Total 1789.2 1560 125 Output Total 1980 1240 525 Balance -190.8 320 -400 Weight 65 kg Intake: IV 1417 1560 125 0.9 pressure bag 27 Invasive Line 2 60 60 Lactated Ringers 1,000 ml 80 @ 100 mls/hr IV .[facility]10H [facility] Rx#:[id number] Sodium Chloride 0.9% 1, 1250 1500 125 000 ml @ 125 mls/hr IV . Q8H [facility] Rx#:[id number] Intake, IV Titration 132.2 Amount Ropivacaine 250 mg 132.2 fentaNYL (PF) 625 mcg In Sodium Chloride 0.9% 188 ml @ Per Protocol EPIDURAL .Q0M PRN Rx#: [id number] Oral 240 Output: Gastric Drainage 700 450 Urine 1280 1240 75 Other: Voiding Method Indwelling Catheter Indwelling Catheter # Bowel Movements 0 ABP, PAP, CO, CI - Last Documented Arterial Blood Pressure 143/63 - Exam General appearance: The patient is alert, oriented, appears in no acute distress. HET: Head is normocephalic and atraumatic. Pupils are equal and reactive. Neck: Supple. Heart: Regular. Lungs: Equal expansion, normal respiratory effort. Abdomen: Soft, nontender, positive bowel sounds, nondistended. Prevena wound VAC dressing in place midline abdomen. Extremities: Normal skin color and turgor. Warm to the touch. Palpable DP pulses bilaterally. Neurological: No focal deficits. Strength and sensation are grossly intact. - Labs CBC & Chem 7: 09/01/23 03:10 09/01/23 03:10 Labs: Abnormal Lab Results - Last 24 Hours (Table) 08/31/23 09/01/23 09/01/23 Range/Units 09:32 03:10 03:10 WBC 13.0 H (3.8-10.6) k/uL RBC 2.82 L (3.80-5.40) m/uL Hgb 8.5 L (11.4-16.0) gm/dL Hct 26.0 L (34.0-46.0) % Plt Count 69 L (150-450) k/uL Sodium 134 L 135 L (137-145) mmol/L Chloride 108 H (98-107) mmol/L Carbon Dioxide 21 L (22-30) mmol/L BUN 28 H 28 H (7-17) mg/dL Creatinine 1.64 H 1.42 H (0.52-1.04) mg/dL Glucose 73 L (74-99) mg/dL Calcium 8.0 L (8.4-10.2) mg/dL AST 158 H (14-36) U/L ALT 57 H (4-34) U/L Total Protein 4.7 L (6.3-8.2) g/dL Albumin 2.5 L (3.5-5.0) g/dL Assessment and Plan Assessment: 1. Juxtarenal AAA status post open repair with interposition tube graft 2. Acute kidney injury likely prerenal in setting of acute blood loss, improving 3. Anemia likely secondary to acute blood loss secondary to surgery, expected 4. Thrombocytopenia 5. History of hyperlipidemia 6. History of hypertension 7. Chronic ongoing tobacco dependence Plan: 1. Continue symptomatic and supportive care 2. She may be downgraded to stepdown unit 3 S. 3. May keep NG tube out for now 4. Start clear liquid diet 5. Repeat CBC this afternoon 6. Daily CBC, BMP 7. Continue IV fluids, increased to 125 an hour with normal saline 8. Encourage ambulation 9. Continue incentive spirometer 10. Smoking cessation discussed with patient. Nicotine patch offered to patient and ordered. 11. Continue Prevena wound VAC dressing to abdomen for 7 days postop 12. Heparin discontinued due to thrombocytopenia 13. Consider possible hematology consult 14. Rest of medical management per primary medical team The impression and plan of care has been dictated as directed. Dr. Nazario I performed a history and examination of this patient, discussed the same with the dictator. I agree with the dictator's note ,documented as a scribe. Any additional findings or plans will be noted.
[2023-09-01 11:18] LABS: Glucose,Whole Blood 93 mg/dL (70-110)
[2023-09-01 11:59] LABS: HCT 28.8 % (34.0-46.0); HGB 9.4 gm/dL (11.4-16.0); MCHC 32.7 g/dL (31.0-37.0); Mean Platelet Volume 10.1; RBC 3.14 m/uL (3.80-5.40); RDW 13.6 % (11.5-15.5); WBC 18.7 k/uL (3.8-10.6)
[2023-09-01 12:04] LABS: Platelet Count 118 k/uL (150-450)
--- NOTE | 2023-09-01 15:05 | P.PN ---
Subjective Progress Note Date: 09/01/23 Hospital Course: 67-year-old female with history of AAA, hypertension, dyslipidemia presenting for elective AAA repair. Sound physicians consulted for medical management. Patient underwent open AAA repair with interposition tube graft. Estimated blood loss of 700 cc. Vital signs currently stable, intermittently tachycardic, not requiring any pressors. Currently being managed in medical ICU. Subjective: Patient seen and examined at bedside. No acute events overnight. Having adequate urine output. No further bloody bowel movements. Nazario catheter in place Pertinent positives and negatives as discussed above, a complete review of systems was performed and all other systems are negative. Vitals Signs Reviewed. General: Nontoxic, no distress, appears at stated age Derm: Warm, dry, abdominal dressing clean, dry, intact Head: Atraumatic, normocephalic, symmetric Eyes: EOMI, no lid lag, anicteric sclera Mouth: No lip lesion, mucus membranes moist Cardiovascular: S1S2 reg, no murmur Lungs: CTA bilateral, no rhonchi, no rales, no accessory muscle use, supplemental oxygen Abdominal: Soft, nontender to palpation, no guarding, no appreciable organomegaly Ext: No gross muscle atrophy, no edema, no contractures Neuro: CN II-XI grossly intact, no focal neuro deficits Psych: Alert, oriented, appropriate affect Data Reviewed Today: Pertinent Labs: WBC 13.8, hemoglobin 8.5, platelets 69, sodium 135, bicarb 21, creatinine 1.42, blood sugars range between 73-75, magnesium 2.3 Imaging: No new imaging Assessment and Plan: Status post AAA open repair Leukocytosis, anticipated outcome of surgery Acute blood loss anemia, anticipated outcome of surgery Thrombocytopenia, likely bone marrow suppression Possible GI bleed? -Pain control with epidural, managed by anesthesia, IV Dilaudid 0.5 every 2 hours as needed for severe breakthrough pain, monitor for sedation, [place] as needed for moderate pain, Tylenol as needed for mild pain -Anemia labs ordered, reticulocyte count pending -Plan discussed with vascular surgery -Holding subcu heparin, low 4T score, HIT panel not ordered -PT/OT -On Protonix 40 IV twice daily, continue to monitor hemoglobin, may need hematology consult if no improvement in hemoglobin -Pulmonology note reviewed, continue to monitor, transfer out of the ICU Acute kidney injury, nonoliguric, improving Non-anion gap metabolic acidosis Lactic acidosis, resolved -Still having good urine output -Likely prerenal in the setting of acute blood loss -Normal saline changed to lactated Ringer at 125 cc an hour Hypertension -Amlodipine 5 mg daily Dyslipidemia -Continue atorvastatin 10 mg daily Hyperglycemia, likely stress-induced Prediabetes, A1c 5.9 -Continue sliding scale insulin ACHS, monitor for hypoglycemia Thank you for allowing us to participate in the care of this pleasant patient. Do not hesitate to contact us with questions. Someone can be reached from the [facility] hospitalist group all hours of the day at [phone] or via [employer]. Objective - Vital Signs Vital signs: Vital Signs Temp 98.2 F 09/01/23 14:57 Pulse 107 H 09/01/23 14:57 Resp 16 09/01/23 14:57 BP 149/68 09/01/23 14:57 Pulse Ox 95 09/01/23 14:57 FiO2 21 08/29/23 15:46 Intake & Output 08/31/23 09/01/23 09/01/23 18:59 06:59 18:59 Intake Total 1789.2 1560 750 Output Total 1980 1240 975 Balance -190.8 320 -225 Weight 65 kg Intake: IV 1417 1560 750 0.9 pressure bag 27 Invasive Line 2 60 60 Lactated Ringers 1,000 ml 80 @ 100 mls/hr IV .Q10H [facility] Rx#:[id number] Sodium Chloride 0.9% 1, 1250 1500 750 000 ml @ 125 mls/hr IV . Q8H [facility] Rx#:[id number] Intake, IV Titration 132.2 Amount Ropivacaine 250 mg 132.2 fentaNYL (PF) 625 mcg In Sodium Chloride 0.9% 188 ml @ Per Protocol EPIDURAL .Q0M [facility]N Rx#: [id number] Oral 240 Output: Gastric Drainage 700 450 Urine 1280 1240 525 Other: Voiding Method Indwelling Catheter Indwelling Catheter Indwelling Catheter # Bowel Movements 0 ABP, PAP, CO, CI - Last Documented Arterial Blood Pressure 143/63 - Labs CBC & Chem 7: 09/01/23 11:35 09/01/23 03:10 Labs: Abnormal Lab Results - Last 24 Hours (Table) 09/01/23 09/01/23 09/01/23 Range/Units 03:10 03:10 08:13 WBC 13.0 H (3.8-10.6) k/uL RBC 2.82 L (3.80-5.40) m/uL Hgb 8.5 L (11.4-16.0) gm/dL Hct 26.0 L (34.0-46.0) % Plt Count 69 L (150-450) k/uL Fibrinogen (200-500) mg/dL D-Dimer (<0.60) mg/L FEU Sodium 135 L (137-145) mmol/L Chloride 108 H (98-107) mmol/L Carbon Dioxide 21 L (22-30) mmol/L BUN 28 H (7-17) mg/dL Creatinine 1.42 H (0.52-1.04) mg/dL Glucose 73 L (74-99) mg/dL Calcium 8.0 L (8.4-10.2) mg/dL Transferrin (204.0-354.0) mg/dL Lactate Dehydrogenase 1973 H (120-246) U/L 09/01/23 09/01/23 09/01/23 Range/Units 08:13 08:13 11:35 WBC 18.7 H (3.8-10.6) k/uL RBC 3.14 L (3.80-5.40) m/uL Hgb 9.4 L (11.4-16.0) gm/dL Hct 28.8 L (34.0-46.0) % Plt Count 118 L D (150-450) k/uL Fibrinogen 935 H (200-500) mg/dL D-Dimer 7.22 H (<0.60) mg/L FEU Sodium (137-145) mmol/L Chloride (98-107) mmol/L Carbon Dioxide (22-30) mmol/L BUN (7-17) mg/dL Creatinine (0.52-1.04) mg/dL Glucose (74-99) mg/dL Calcium (8.4-10.2) mg/dL Transferrin 141.0 L (204.0-354.0) mg/dL Lactate Dehydrogenase (120-246) U/L
[2023-09-01] MEDS: LACTATED RINGERS 1,000 ML IV SCH (15:14)
[2023-09-01 15:34] LABS: % Iron Saturation 32.31 (12.00-45.00)
[2023-09-01 16:21] LABS: Glucose,Whole Blood 124 mg/dL (70-110)
[2023-09-01 20:34] LABS: Glucose,Whole Blood 110 mg/dL (70-110)
[2023-09-02 03:51] VITALS: TEMP 97.5
[2023-09-02 05:28] LABS: Glucose,Whole Blood 117 mg/dL (70-110)
[2023-09-02 08:47] LABS: HCT 28.5 % (34.0-46.0); HGB 9.3 gm/dL (11.4-16.0); MCH 29.8 pg (25.0-35.0); MCHC 32.7 g/dL (31.0-37.0); MCV 91.2 fL (80.0-100.0); Mean Platelet Volume 10.2; Platelet Count 132 k/uL (150-450); RBC 3.13 m/uL (3.80-5.40); RDW 13.5 % (11.5-15.5)
[2023-09-02 08:59] LABS: African American GFR (CKD) 52 (>60 ml/min/1.73 sqM); Anion Gap 7 mmol/L; Blood Urea Nitrogen 19 mg/dL (7-17); Calcium 8.6 mg/dL (8.4-10.2); Carbon Dioxide 24 mmol/L (22-30); Chloride 104 mmol/L (98-107); Glucose 124 mg/dL (74-99); Non-African American GFR(CKD) 45 (>60 ml/min/1.73 sqM); Potassium 3.2 mmol/L (3.5-5.1); Sodium 135 mmol/L (137-145)
[2023-09-02 09:06] VITALS: RESP 16
[2023-09-02] MEDS: POTASSIUM CHLORIDE ER 20 MEQ TAB.ER PO STA (09:37)
[2023-09-02] MEDS: POTASSIUM CHLORIDE ER 20 MEQ TAB.ER PO ONE (09:38)
[2023-09-02 12:07] LABS: Glucose,Whole Blood 126 mg/dL (70-110)
[2023-09-02 12:24] VITALS: BP 138/68; PULSE 103
[2023-09-02 12:38] VITALS: BMI 24.7
--- NOTE | 2023-09-02 13:04 | P.DS ---
Providers Date of admission: 08/29/23 05:32 Expected date of discharge: 09/02/23 Attending physician: Jovanni Sierra DO Consults: 08/29/23 14:25 Consult Physician Urgent Consulting Provider: David Sanon Consult Reason/Comments: medical management Do you want consulting provider notified?: Already Contacted 08/29/23 16:05 Consult Physician Urgent Consulting Provider: James Bangura Consult Reason/Comments: ICU management Do you want consulting provider notified?: Already Contacted Primary care physician: [facility] Course: 67-year-old female with history of juxtarenal AAA who had presented for open repair due to aneurysm being unstable for endovascular repair. His patient is postop day #4 and overall doing very well. She was transferred out of the ICU yesterday. She did have acute blood loss anemia, did not require any blood transfusion. also acute kidney injury likely secondary to above which has been improving.She was also started on heparin subcu and noted to have a drop in her platelets however those are improving. She has been up and ambulating. She has had a bowel movement. Up to a full liquid diet and tolerating. She has been using incentive spirometer. She's been afebrile. Prevena dressing in place to her abdomen. today's labs WBC 20 hemoglobin 9.3 platelet count 132,000 sodium 135 potassium 3.2 B1 19 creatinine 1.2. Pain has been well managed and is tolerable. Patient requesting for discharge. Exam General appearance: The patient is alert, oriented, appears in no acute distress. HET: Head is normocephalic and atraumatic. Pupils are equal and reactive. Neck: Supple. Heart: Regular. Lungs: Equal expansion, normal respiratory effort. Abdomen: Soft, Prevena dressing midline abdomen, nondistended, positive bowel sounds. Extremities: Normal skin color and turgor. palpable DP pulses. Neurological: No focal deficits. Strength and sensation are grossly intact. Assessment: 1. Juxtarenal AAA status post open repair with interposition tube graft 2. Acute kidney injury likely prerenal in setting of acute blood loss, improving 3. Anemia likely secondary to acute blood loss secondary to surgery, expected 4. Thrombocytopenia 5. History of hyperlipidemia 6. History of hypertension 7. Chronic ongoing tobacco dependence 8. Hypokalemia Plan: 1. Continue symptomatic and supportive care 2. Advance to full liquid diet 3. Encourage ambulation 4. Continue incentive spirometer 5. Smoking cessation discussed with patient. Nicotine patch offered to patient and ordered. 6. Continue Prevena wound VAC dressing to abdomen for 7 days postop 7. Replace potassium per protocol 8. Rest of medical management per primary medical team. Patient was cleared by medical team Plan for discharge after potassium replacement and patient tolerating full liquid diet. Home care to be set up for patient by case management.\ The impression and plan of care has been dictated as directed. Dr. Nazario I performed a history and examination of this patient, discussed the same with the dictator. I agree with the dictator's note ,documented as a scribe. Any additional findings or plans will be noted. Procedures: open AAA repair with interposition tube graft Patient Condition at Discharge: Stable Plan - Discharge Summary Discharge Rx Participant: No New Discharge Prescriptions: New Pantoprazole [Protonix] 40 mg PO DAILY #90 tab HYDROcodone/APAP 5-325MG [[place] 5-325] 1 each PO Q4HR PRN 3 Days #18 tab PRN Reason: Moderate To Severe Pain (4-10) Acetaminophen Tab [Tylenol] 650 mg PO Q6HR PRN tab PRN Reason: Fever And/ Or Pain Continue Cholecalciferol [Vitamin D3 (25 Mcg = 1000 Iu)] 25 mcg PO DAILY amLODIPine [Norvasc] 5 mg PO QAM Atorvastatin [Lipitor] 10 mg PO DAILY Discharge Medication List Atorvastatin [Lipitor] 10 mg PO DAILY 08/26/23 [History] Cholecalciferol [Vitamin D3 (25 Mcg = 1000 Iu)] 25 mcg PO DAILY 08/26/23 [History] amLODIPine [Norvasc] 5 mg PO QAM 08/26/23 [History] Acetaminophen Tab [Tylenol] 650 mg PO Q6HR PRN tab 09/02/23 [Rx] HYDROcodone/APAP 5-325MG [[place] 5-325] 1 each PO Q4HR PRN 3 Days #18 tab 09/02/23 [Rx] Pantoprazole [Protonix] 40 mg PO DAILY #90 tab 09/02/23 [Rx] Follow up Appointment(s)/Referral(s): Karey Coulter MD [REFERRING] - 1 Week Jovanni Sierra DO [STAFF PHYSICIAN] - 1 Week [facility] Visiting Nurse, [NON-STAFF] - Activity/Diet/Wound Care/Special Instructions: No driving until cleared by surgeon Avoid heavy lifting greater than 10 lbs , pushing, pulling, straining, flights of stairs for until cleared by surgeon. ok to shower once Prevena wound VAC dressing discontinued but no baths, pools, soaking in tubs to avoid risk of infection. signs of infection ie: fever, rash, drainage from puncture site, swelling contact doctor or return to ER immediately. Heavy bleeding from puncture site apply firm direct pressure and return to ER. Do not attempt to drive self. in U full liquid/soft diet for another 1-2 days then advance to low sodium/low fat diet may turn off per been addressing and remove and throw away on 09/05/23 Please see your PCP. If you do not have one, please call Dr. Coulter's office to make an appointment. Discharge Disposition: HOME WITH HOME HEALTH SERVICES
--- NOTE | 2023-09-02 13:21 | P.PN ---
Subjective Progress Note Date: 09/02/23 Principal diagnosis: Aneurysm repair. Patient is a 67-year-old white female with past medical history significant for hyperlipidemia, hypertension, and is a current everyday smoker. She smokes approximately 1 pack/day. Patient is also known to have an abdominal aortic aneurysm. CT angio of the abdomen and pelvis demonstrated enlargement of his aneurysm including a 5.6 x 5.8 cm abdominal aortic aneurysm extending from the renal arteries to the bifurcation. Incidentally, there is also a calcified mass in the left adnexal region measuring 2 cm. Patient is currently postoperative day #1 following an elective open AAA repair with interposition tube graft. EBL was 700 mL. No perioperative complications were reported. Patient was successfully extubated in recovery. She is currently in the intensive care unit, on 2 L/min nasal cannula, no acute distress. Blood pressure is slightly hypertensive at 131/69. Heart rhythm is normal sinus, with a rate of 90 bpm. Pain appears well-controlled with current analgesic regiment. She does have a midline abdominal incision with postoperative wound VAC in place. Incision appears approximated. No significant drainage. Abdomen is soft. CBC postoperatively includes a WBC count of 21.4, hemoglobin 13.6, hematocrit 41.6, platelets 241. Leukocytosis is likely reactive to surgery. BMP: Includes a sodium 140, potassium 4, chloride 110, serum bicarb 20, BUN 11, creatinine 0.95, glucose 219. Lactic acidemia noted and was 5.8, currently is down to 3.9. LR is infusing at 80 MLS per hour. Ropivacaine/fentanyl epidural is infusing for pain control at 6 ml/hr. Bilateral lower extremities have good strength and motor c ontrol. Bilateral feet are warm. Distal pulses are strong 2+. She does admit some left foot pain that is described as sharp, improves with dorsal/plantar flexion. Currently rated 3/10 on a 10 point numerical scale. This pain was first noted postoperatively. Patient seems to be hemodynamically stable at this time. Progress note dated August 31, 2023. 67-year-old white female postoperative day #2, status post abdominal aortic aneurysm repair. Currently, the patient is on 2 L of nasal oxygen, has an NG tube in place, and getting saline at 125 cc/h. The patient has no specific complaints. Clinically she is doing well. She denies any significant pain or any shortness of breath. Current labs include a white count 15.9, hemoglobin 9.7, hematocrit 28, and a platelet count of 80,000. Sodium 134, potassium 4, chlorides 105, CO2 28, BUN 28, creatinine 1.64. Glucose is 96. AST 158 ALT 57 and albumin is 2.5. No chest x-ray today. Progress note dated September 01, 2023. 67-year-old white female postop day #3, status post abdominal aortic aneurysm repair. The patient is seen today in room 261. NG tube has been removed. She is currently on room air. She is getting saline at 125 cc an hour. The patient is doing well, and can be transferred out of the intensive care unit. Labs tod ay include a white count of 13, hemoglobin 8.5, hematocrit 26, and a platelet count of 69,000. The patient's sodium was 135, potassium 3.5, chlorides 108, CO2 21, anion gap 6, BUN 28, creatinine 1.42. Progress note dated 09/02/2023. 67-year-old female postop day #4, status post abdominal aortic aneurysm repair. The patient appears be doing relatively well. She is seen today in room 369. Nasal O2 is been discontinued, and the NG tube is out. She's not receiving any IV fluids. She is hoping to be discharged home today. Current labs include a white count of 20, hemoglobin 9.3, hematocrit 28.5, and a platelet count of 132,000. Sodium 135, potassium 3.2, chlorides 104, CO2 24, BUN 19, creatinine 1.25. Glucose 126. Calcium is 8.6.Culture data is negative are pending. No recent x-ray to report. Objective - Vital Signs Vital signs: Vital Signs Temp 97.5 F L 09/02/23 08:00 Pulse 103 H 09/02/23 12:00 Resp 16 09/02/23 12:00 BP 138/68 09/02/23 12:00 Pulse Ox 96 09/02/23 12:00 FiO2 21 08/29/23 15:46 Intake & Output 09/01/23 09/02/23 09/02/23 18:59 06:59 18:59 Intake Total 750 Output Total 975 300 Balance -225 -300 Weight 61.5 kg 61.5 kg Intake: IV 750 Sodium Chloride 0.9% 1, 750 000 ml @ 125 mls/hr IV . Q8H ROSARIO Rx#:[id number] Output: Gastric Drainage 450 Urine 525 300 Other: Voiding Method Indwelling Catheter Toilet Toilet # Voids 3 ABP, PAP, CO, CI - Last Documented Arterial Blood Pressure 143/63 - Exam No acute distress, oriented 3. No respiratory distress. Currently on room air. HEENT examination is grossly unremarkable. Mucous membranes are moist. No oral lesions. Neck supple. Full range of motion. No adenopathy thyromegaly or neck vein distention. Cardiovascular examination reveals regular rhythm rate. S1-S2 normal. No S3 or S4. No discernible murmur noted. Heart sounds are distant. Heart rate 86 bpm. Lungs reveal clear breath sounds. Her sounds are equal bilaterally. No adventitious lung sounds including wheezes rhonchi or crackles. Room air saturation 96 %. Abdomen soft bowel sounds are heard. No masses or tenderness. Extremities are intact. No cyanosis clubbing or edema. Skin is without rash or lesion. Neurologic examination is brief but nonfocal. - Labs CBC & Chem 7: 09/02/23 08:31 09/02/23 08:31 Labs: Abnormal Lab Results - Last 24 Hours (Table) 09/01/23 09/01/23 09/02/23 Range/Units 08:13 16:16 05:27 WBC (3.8-10.6) k/uL RBC (3.80-5.40) m/uL Hgb (11.4-16.0) gm/dL Hct (34.0-46.0) % Plt Count (150-450) k/uL Sodium (137-145) mmol/L Potassium (3.5-5.1) mmol/L BUN (7-17) mg/dL Creatinine (0.52-1.04) mg/dL Glucose (74-99) mg/dL POC Glucose (mg/dL) 124 H 117 H (70-110) mg/dL TIBC 195 L (228-460) UG/DL Transferrin 139.0 L (204.0-354.0) mg/dL Ferritin 3769.0 H (10.0-291.0) ng/mL 09/02/23 09/02/23 09/02/23 Range/Units 08:31 08:31 12:06 WBC 20.0 H (3.8-10.6) k/uL RBC 3.13 L (3.80-5.40) m/uL Hgb 9.3 L (11.4-16.0) gm/dL Hct 28.5 L (34.0-46.0) % Plt Count 132 L (150-450) k/uL Sodium 135 L (137-145) mmol/L Potassium 3.2 L (3.5-5.1) mmol/L BUN 19 H (7-17) mg/dL Creatinine 1.25 H (0.52-1.04) mg/dL Glucose 124 H (74-99) mg/dL POC Glucose (mg/dL) 126 H (70-110) mg/dL TIBC (228-460) UG/DL Transferrin (204.0-354.0) mg/dL Ferritin (10.0-291.0) ng/mL Assessment and Plan Assessment: Abdominal aortic aneurysm, measuring 5.6 x 5.8 cm extending from the renal jenna ry to the bifurcation, status postoperative day #4 following an elective open repair repair with interposition tube graft. Acute leukocytosis, reactive to above. Lactic acidemia, improving. History of hyperlipidemia. Hypertension. Hyperglycemia, without known previous diagnosis of diabetes mellitus. Chronic ongoing tobacco dependence, current 1 pack/day smoker and over [id number] history. Plan: Plan dated August 31, 2023. The patient is seen in the intensive care unit. She remains in the intensive care unit, for further monitoring and management. The patient has an NG tube in place. She is postoperative day #2. She is on 2 L of nasal cannula. She is getting saline at 125 cc an hour. Was a slight worsening of the patient's kidney function. In addition, the patient's sodium was a bit lower. We will continue to follow the patient, make recommendations along the way. Prognosis is guarded. No additional recommendations at this time. Plan dated September 01, 2023. The patient is seen in room 261. She is on room air. NG tube has been removed. She continues on saline at 125 cc an hour. Labs, x-rays, medications are reviewed. The patient has been downgraded, and can be moved out of the intensive care unit. We will continue to follow the patient, make stephanie mmendations along the way. The patient's overall prognosis remains guarded. No additional recommendations are made at this time. Plan dated 09/02/2023. The patient's doing well. The patient is seen today in room 369. The patient's not receiving any supplemental oxygen. The NG tube has been removed. No IV fluids. The patient denies all respiratory issues including shortness of breath, cough, wheezing, chest tightness, or phlegm production. Labs, x-rays, and medications are all reviewed. The patient is hoping to be discharged home today. Time with Patient: Less than 30
--- NOTE | 2023-09-02 15:57 | P.PN ---
Subjective Progress Note Date: 09/02/23 Hospital Course: 67-year-old female with history of AAA, hypertension, dyslipidemia presenting for elective AAA repair. Sound physicians consulted for medical management. Patient underwent open AAA repair with interposition tube graft. Estimated blood loss of 700 cc. Vital signs currently stable, intermittently tachycardic, not requiring any pressors. Currently being managed in medical ICU. Patient downgraded to 3S. She is medically optimized for discharge. Subjective: Patient seen and examined at bedside. No acute events overnight. Having adequate urine output. No further bloody bowel movements. Nazario catheter removed. Pt says shes is voiding and have frequent bowel movements. No signs in blood from bowel movement. Pertinent positives and negatives as discussed above, a complete review of systems was performed and all other systems are negative. Vitals Signs Reviewed. General: Nontoxic, no distress, appears at stated age Derm: Warm, dry, abdominal dressing clean, dry, intact Head: Atraumatic, normocephalic, symmetric Eyes: EOMI, no lid lag, anicteric sclera Mouth: No lip lesion, mucus membranes moist Cardiovascular: S1S2 reg, no murmur Lungs: CTA bilateral, no rhonchi, no rales, no accessory muscle use, supplemental oxygen Abdominal: Soft, nontender to palpation, no guarding, no appreciable organomegaly Ext: No gross muscle atrophy, no edema, no contractures Neuro: CN II-XI grossly intact, no focal neuro deficits Psych: Alert, oriented, appropriate affect Data Reviewed Today: Pertinent Labs: WBC 20.0, Hgb 9.3, plt 132, fibrinogen 935, d-dimer 7.22, K 3.2, Na 135, Cr 1.25, glucose 124, retic 1.8, haptoglobin 99.9 Imaging: No new imaging Assessment and Plan: Status post AAA open repair Leukocytosis, anticipated outcome of surgery Acute blood loss anemia, anticipated outcome of surgery Thrombocytopenia, likely bone marrow suppression GI bleed unlikely -Pain control with epidural, managed by anesthesia, IV Dilaudid 0.5 every 2 hours as needed for severe breakthrough pain, monitor for sedation, [place] as needed for moderate pain, Tylenol as needed for mild pain -Anemia labs ordered, reticulocyte 1.8. haptoglobin 99.9 -Plan discussed with vascular surgery -Holding subcu heparin, low 4T score, HIT panel not ordered -PT/OT -On Protonix 40 IV twice daily, continue to monitor hemoglobin, may need hematology consult if no improvement in hemoglobin -Pulmonology note reviewed, continue to monitor Acute kidney injury, nonoliguric, improving Non-anion gap metabolic acidosis Lactic acidosis, resolved -Still having good urine output -Likely prerenal in the setting of acute blood loss -actated Ringer at 125 cc an hour Hypokalemia - was given 60 meq KCl PO once Hypertension -Amlodipine 5 mg daily Dyslipidemia -Continue atorvastatin 10 mg daily Hyperglycemia, likely stress-induced Prediabetes, A1c 5.9 -Continue sliding scale insulin ACHS, monitor for hypoglycemia Thank you for allowing us to participate in the care of this pleasant patient. Do not hesitate to contact us with questions. Someone can be reached from the [facility] [facility] hospitalist group all hours of the day at [phone] or via [employer]. I have seen and evaluated the patient today. Discussed with the resident and agree with resident's findings and plan as documented in the resident's note. Changes highlighted in blue font. Objective - Vital Signs Vital signs: Vital Signs Temp 97.5 F L 09/02/23 03:49 Pulse 101 H 09/02/23 03:49 Resp 18 09/02/23 03:49 BP 155/66 09/02/23 03:49 Pulse Ox 98 09/02/23 03:49 FiO2 21 08/29/23 15:46 Intake & Output 09/01/23 09/02/23 09/02/23 18:59 06:59 18:59 Intake Total 750 Output Total 975 300 Balance -225 -300 Weight 61.5 kg Intake: IV 750 Sodium Chloride 0.9% 1, 750 000 ml @ 125 mls/hr IV . Q8H ROSARIO Rx#:[id number] Output: Gastric Drainage 450 Urine 525 300 Other: Voiding Method Indwelling Catheter Toilet # Voids 3 ABP, PAP, CO, CI - Last Documented Arterial Blood Pressure 143/63 - Labs CBC & Chem 7: 09/02/23 08:31 09/02/23 08:31 Labs: Abnormal Lab Results - Last 24 Hours (Table) 09/01/23 09/01/23 09/01/23 Range/Units 08:13 08:13 08:13 WBC (3.8-10.6) k/uL RBC (3.80-5.40) m/uL Hgb (11.4-16.0) gm/dL Hct (34.0-46.0) % Plt Count (150-450) k/uL Fibrinogen 935 H (200-500) mg/dL D-Dimer 7.22 H (<0.60) mg/L FEU POC Glucose (mg/dL) (70-110) mg/dL TIBC 195 L (228-460) UG/DL Transferrin 139.0 L 141.0 L (204.0-354.0) mg/dL Ferritin 3769.0 H (10.0-291.0) ng/mL Lactate Dehydrogenase 1973 H (120-246) U/L 09/01/23 09/01/23 09/02/23 Range/Units 11:35 16:16 05:27 WBC 18.7 H (3.8-10.6) k/uL RBC 3.14 L (3.80-5.40) m/uL Hgb 9.4 L (11.4-16.0) gm/dL Hct 28.8 L (34.0-46.0) % Plt Count 118 L D (150-450) k/uL Fibrinogen (200-500) mg/dL D-Dimer (<0.60) mg/L FEU POC Glucose (mg/dL) 124 H 117 H (70-110) mg/dL TIBC (228-460) UG/DL Transferrin (204.0-354.0) mg/dL Ferritin (10.0-291.0) ng/mL Lactate Dehydrogenase (120-246) U/L
== END 2023-09-02 14:54 | disposition home health service (06) | DRG 271 ==
LOC: 2ORMAIN 05:32 → 2SICU 13:57 → 3SCARD 09-01 13:41
PROVIDERS: ADMIT Surgery; ATTEND Surgery
PROC: 02HV33Z Insertion of Infusion Device into Superior Vena Cava, Percutaneous Approach (ICD-10-PCS; 2023-08-29)
PROC: B5181ZA Fluoroscopy of Superior Vena Cava using Low Osmolar Contrast, Guidance (ICD-10-PCS; 2023-08-29)
PROC: B548ZZA Ultrasonography of Superior Vena Cava, Guidance (ICD-10-PCS; 2023-08-29)
PROC: 2W13X6Z Compression of Abdominal Wall using Pressure Dressing (ICD-10-PCS; 2023-08-29)
PROC: 0D9670Z Drainage of Stomach with Drainage Device, Via Natural or Artificial Opening (ICD-10-PCS; 2023-08-29)
PROC: 4A133B1 Monitoring of Arterial Pressure, Peripheral, Percutaneous Approach (ICD-10-PCS; 2023-08-29)
PROC: 4A133J1 Monitoring of Arterial Pulse, Peripheral, Percutaneous Approach (ICD-10-PCS; 2023-08-29)
PROC: 03HY32Z Insertion of Monitoring Device into Upper Artery, Percutaneous Approach (ICD-10-PCS; 2023-08-29)
PROC: 04V00DZ Restriction of Abdominal Aorta with Intraluminal Device, Open Approach (ICD-10-PCS; principal; 2023-08-29 11:45)
DX: I71.42 Juxtarenal abdominal aortic aneurysm, without rupture (principal); D62 Acute posthemorrhagic anemia; E87.20 Acidosis, unspecified; N17.9 Acute kidney failure, unspecified; I10 Essential (primary) hypertension; E78.5 Hyperlipidemia, unspecified; M19.90 Unspecified osteoarthritis, unspecified site; R73.9 Hyperglycemia, unspecified; D72.829 Elevated white blood cell count, unspecified; F17.210 Nicotine dependence, cigarettes, uncomplicated; R73.03 Prediabetes; D69.6 Thrombocytopenia, unspecified; E87.6 Hypokalemia; Z71.6 Tobacco abuse counseling; R00.0 Tachycardia, unspecified; Z86.79 Personal history of other diseases of the circulatory system; Z79.899 Other long term (current) drug therapy
CPT/HCPCS: 71045; 76770; 80048; 80053; 82728; 82805; 83010; 83036; 83540; 83550; 83605; 83615; 83735; 84132; 84466; 85025; 85027; 85045; 85379; 85384; 85610; 86850; 86891; 86900; 86901; 88304

== ENCOUNTER → 2023-10-24 | Outpatient (CLI) | payer MEDICARE ==
[2023-10-24 12:50] LABS: African American GFR (CKD) 86 (>60 ml/min/1.73 sqM); Blood Urea Nitrogen 10 mg/dL (7-17); Non-African American GFR(CKD) 74 (>60 ml/min/1.73 sqM)
--- NOTE | 2023-10-24 13:57 | CT ---
EXAMINATION TYPE: CT noncontrast abdomen and pelvis. CT angiogram abdomen and pelvis with contrast. CT abdomen pelvis w con delayed imaging. CT DLP: 669.2 mGycm, Automated exposure control for dose reduction was used. DATE OF EXAM: 10/24/2023 1:45 PM COMPARISON: 05/17/2023. CLINICAL INDICATION: Female, 68 years old with history of I71.4 AAA WITHOUT RUPTURE; PHH, abdominal a ortic aneurysm TECHNIQUE: Multiple thin slice sub-millimeter images were obtained after administration of contrast. 3-D reconstructed images and maximum intensity projection images were obtained. CT angio abdomen pel vis CT Contrast: Contrast used:100 ml mL of Isovue 370 with IV Contrast, Oral contrast used: without Oral Contrast None FINDINGS: CTA Abdomen and pelvis: There is aneurysmal dilation of the abdominal aorta with stent graft present. No evidence for intramural hematoma on noncontrast imaging. Postcontrast imaging demonstrates inferi or ascending thoracic aorta atherosclerotic ulcer series 7 image 11. Additionally there is atheroscle rosis throughout the vasculature. The major organs including the celiac axis, superior mesenteric art tiffany and bilateral renal arteries are patent. Infrarenal abdominal aortic fusiform aneurysm up to 4.2 cm including the excluded lumen. No evidence for endoleak and delayed imaging. No high-density contra st seen within the excluded lumen. Inferior mesenteric artery is not visualized. The bilateral common iliac arteries are patent. Bilateral external iliac arteries are patent. LOWER CHEST: No evidence of focal consolidation, pneumothorax or pleural effusion. LIVER: Unremarkable GALLBLADDER AND BILE DUCTS: Surgically absent. PANCREAS: Unremarkable. SPLEEN: Unremarkable. ADRENAL GLANDS: Left adrenal nodule compatible with adrenal adenoma measuring 21 mm. No right adrenal nodule. KIDNEYS AND URETERS: No evidence of hydronephrosis or renal calculus. The ureters are unremarkable. PELVIS BLADDER: Unremarkable REPRODUCTIVE: Calcified lesion in the left pelvis possibly related to the ovary measuring 24 mm. . ABDOMEN & PELVIS STOMACH AND BOWEL: No evidence of bowel obstruction. Scattered colonic diverticula present. PERITONEUM: No evidence of pneumoperitoneum or free fluid. VASCULATURE: No evidence of aortic aneurysm. MUSCULOSKELETAL: No acute osseous abnormalities LYMPH NODES: No gross evidence for lymphadenopathy. SOFT TISSUE/ABDOMINAL WALL: Postsurgical changes anterior abdominal wall. IMPRESSION 1. Abdominal aortic aneurysm stent graft which is patent without evidence of endograft leak. 2. No acute abdominal process. 3. Calcified left adnexal lesion of unclear etiology. Possibly related to the ovary versus peduncula kristen fibroid. 4. Colonic diverticulosis. 5. Stable left adrenal adenoma.
== END | disposition home or self-care (01) ==
LOC: RADCTMAIN 12:05
PROVIDERS: ATTEND Surgery
CPT/HCPCS: 36415; 74174; 82565; 84520

== ENCOUNTER 2023-12-16 11:08 | Day surgery (SDC) | payer MEDICARE ==
[2023-12-16 13:12] VITALS: RESP 16; TEMP 97.9
[2023-12-16] MEDS: LACTATED RINGERS 1,000 ML IV SCH (13:27)
[2023-12-16] MEDS: IV FLUID CONTINUATION 1,000 ML IV ONE (13:27)
[2023-12-16] MEDS ORDERED: LIDOCAINE 1% INJ 10MG/ML (20 ML MDV) ONE (14:04)
[2023-12-16] MEDS ORDERED: PROPOFOL 10 MG/ML 20 ML VIAL IV ONE (14:04)
--- NOTE | 2023-12-16 14:35 | P.PCN ---
Date of Procedure: 12/16/23 Procedure(s) Performed: BRIEF HISTORY: Patient is a 68-year-old pleasant white female scheduled for an elective colonoscopy as a part of screening for colon cancer/positive Cologuard PROCEDURE PERFORMED: Colonoscopy with polypectomy. PREOPERATIVE DIAGNOSIS: Screening for colon cancer/positive Cologuard. IV sedation per Anesthesia. PROCEDURE: After informed consent was obtained, the patient, was brought into the endoscopy unit. IV sedation was administered by Anesthesia under continuous monitoring. Digital rectal examination was normal. Initially the Olympus CF-160 flexible video colonoscope was then inserted in the rectum, gradually advanced into the cecum without any difficulty. Careful examination was performed as the scope was gradually being withdrawn. Ileocecal valve and the appendiceal orifice were visualized and appeared normal. Prep was excellent. Mucosa of the cecum, had a 5 mm polyp removed by cold snare polypectomy. In the proximal ascending colon close to the hepatic flexure there were 2 polyps measuring 1.5 cm and 2 cm in size removed by cold snare polypectomy. In the transverse colon there was a 2 cm broad-based polyp removed by snare polypectomy. In the descending colon there was another 2 cm broad-based polyp removed by snare polypectomy. In the sigmoid colon there were 2 polyps removed by cold snare polypectomy. Scattered sigmoid diverticulosis seen. Rest of the, sigmoid colon, and rectum appeared normal. Retroflexion was performed in the rectum and no lesions were seen. The patient tolerated the procedure well. IMPRESSION: 5 mm cecal polyp status post cold snare polypectomy 1.5 cm and 2 cm broad-based ascending colon polyp close in the hepatic flexure status post piecemeal snare polypectomy 2 cm broad-based transverse colon polyp status post polypectomy 2 cm broad-based proximal ascending colon polyp status post polypectomy 5 mm x 2 sigmoid colon polyp status post snare polypectomy Katter sigmoid diverticulosis RECOMMENDATIONS: Findings of this examination were discussed with the patient as well as her family. She was advised to follow-up with the biopsy results. If the biopsy reveals adenoma she can have repeat colonoscopy in 3 years..
[2023-12-16 15:04] VITALS: BP 152/79; PULSE 71
== END 2023-12-16 15:14 | disposition home or self-care (01) ==
LOC: ORWHC2ENDO 11:08
PROVIDERS: ATTEND Internal Medicine Gastroenterology
DX: D12.2 Benign neoplasm of ascending colon (principal); D12.3 Benign neoplasm of transverse colon; D12.4 Benign neoplasm of descending colon; D12.5 Benign neoplasm of sigmoid colon; K57.30 Diverticulosis of large intestine without perforation or abscess without bleeding; I10 Essential (primary) hypertension; E78.5 Hyperlipidemia, unspecified; K21.9 Gastro-esophageal reflux disease without esophagitis; F17.210 Nicotine dependence, cigarettes, uncomplicated; Z79.899 Other long term (current) drug therapy; Z79.02 Long term (current) use of antithrombotics/antiplatelets
CPT/HCPCS: 88305; 45385; J2003; J2704